=== PATIENT | female | born 1955 | race Caucasian/White ===

== ENCOUNTER 2021-03-07 05:46 | Day surgery (SDC) | payer MEDICARE, MEDICAID ==
[2021-03-07] MEDS ORDERED: XYLOCAINE 1% HCL 20 ML MDV ONE (06:39)
[2021-03-07] MEDS ORDERED: BUPIVACAINE 0.5% VIAL IJ ONE (06:39)
[2021-03-07] MEDS ORDERED: Lactated Ringers 1,000 ML IV SCH (07:00)
[2021-03-07] MEDS ORDERED: Levofloxacin 500MG/100ML D5W 500 MG/100 ML BAG IV ONE ×2 (08:11→08:14)
[2021-03-07] MEDS ORDERED: SUBLIMAZE 100 MCG/2 ML ONE ×2 (08:16→10:42)
[2021-03-07] MEDS ORDERED: Versed 2 MG/2 ML Injection ONE (08:17)
[2021-03-07] MEDS ORDERED: DIPRIVAN 200 MG/20 ML IV ONE (08:18)
[2021-03-07] MEDS ORDERED: Zemuron 100 MG/10 ML ONE (08:18)
[2021-03-07] MEDS ORDERED: Zofran 4 MG/2 ML VIAL ONE (08:18)
[2021-03-07] MEDS ORDERED: Decadron 4 MG INJ ONE (08:18)
[2021-03-07] MEDS ORDERED: Xylocaine-Mpf 2% 5 Ml Vial ONE (08:18)
[2021-03-07] MEDS ORDERED: KEFZOL 1 GM ONE (08:45)
[2021-03-07] MEDS ORDERED: BRIDION 200MG/2ML IV ONE (10:24)
[2021-03-07] MEDS ORDERED: Triple Antibiotic Ointment ONE (10:33)
--- NOTE | 2021-03-07 10:45 | XRAY ---
Indication: 2nd-5th Kathie osteotomy right foot. Intraoperative fluoroscopy provided for 41 seconds. 9 digital spot images submitted for interpretation ultimately demonstrates 2nd metatarsal head orthopedic screw and K wires traversing entire 2nd-4th toes. Correlate with intraoperative findings/report.
[2021-03-07 11:33] VITALS: O2SAT 93
[2021-03-07 11:57] VITALS: BP 157/80; PULSE 80
--- NOTE | 2021-03-08 08:14 | XRAY ---
41 seconds of fluoroscopy was used in surgery for a 2nd-5th Kathie osteotomy of right foot.
--- NOTE | 2021-03-14 12:04 | OP ---
SURGERY DATE/TIME: 03/07/2021 0834 PREOPERATIVE DIAGNOSES: Contracted digits 2, 3, 4 and 5 of the right foot, right foot pain, ingrown toenail, difficulty with ambulation. POSTOPERATIVE DIAGNOSES: Contracted digits 2, 3, 4 and 5 of the right foot, right foot pain, ingrown toenail, difficulty with ambulation. PROCEDURE: Arthrodesis of proximal interphalangeal joints for digits 2, 3, 4. Arthroplasty digit #5. Kathie osteotomy of digit #2 and removal permanent matrixectomy to the right lateral hallux toenail border. SURGEON: Shaheed Miller DPM. RETOUCHING OPERATOR: None. ANESTHESIA: General. HEMOSTASIS: Ankle tourniquet set to 250 mm of Mercury for 80 minutes. ESTIMATED BLOOD LOSS: Less than 20 cc. MATERIALS: 1.2 mm K-wires x3, 4-0 Monocryl, 3-0 Nylon and a Krista cannulated headless compression screw. INJECTABLES: 30 cc of 1:1 mixture of 1% lidocaine plain and 0.5% bupivacaine plain injected in a forefoot block-type fashion. INDICATION FOR SURGERY: Michell is a very pleasant 65 -year-old female who presented to my office with complaints of pain with ambulation in shoe gear secondary to digital contractures at the proximal interphalangeal joints as well as the metatarsophalangeal joint. Her particular deformity was a floating toe with a rigid contracture of the metatarsophalangeal joint of the second digit as well as semirigid contractures of digits 2, 3 and 4 with abductovarus rotation of digits of 4 and 5. The patient was interested in proceeding with correction surgically. She did have complaints of ingrown toenails to the bilateral lower extremity which her left foot was performed in office and because we were placing her under anesthesia she would like to take care of the removal to the right lateral border at this time. The patient understands all risks, complications and benefits of surgical intervention including but not limited to delayed wound healing, nonwound healing, delayed bone healing, nonbone healing, failure of surgical intervention and possible need for surgical intervention in the future and she understands all of the risks such as infection, hematoma and seroma were discussed with the patient prior to surgical intervention. She understands these risks as well and the percentages of which they occur. It is with this she wishes to proceed. DESCRIPTION OF PROCEDURE AND FINDINGS: The patient is brought into the OR and placed on the OR table in the supine position. At this time adequate general anesthesia was administered to the patient until she was sedated. At this time the right lower extremity was prepped and draped in typical sterile fashion, lowered onto the surgical field. At this time attention was directed to the dorsal aspect of the second digit and the second metatarsophalangeal joint. An Esmarch was utilized to exsanguinate the foot and the tourniquet was set to 250 mm of Mercury. A 15 blade was utilized to make an incision at the dorsal aspect of the second digit being careful not to damage any neurovascular structures along the way. At this time we encountered the proximal interphalangeal joint which a capsulotomy was performed. Following capsulotomy the weight bearing was simulated and this was not enough for the digital contracture to correct. A medial nonrotation stroke was performed after performing the osteotomy on the extensor digitorum longus tendon and retracting it out of the way. The metatarsal head was then exposed at this time and a sagittal saw was utilized to make osteotomy perpendicular to the weight bearing surface at the dorsal aspect of the cartilage of the second metatarsal head. At this time the head was translated posteriorly and provisional fixation was utilized to hold this metatarsal head in place. At this time a Krista cannulated headless compression screw was introduced from proximal dorsal to distal plantar obtaining great fixation which was tested for stability. At this time the remaining provisional fixation was uphold and the dorsal overhanging cartilage was removed utilizing a rongeur, this was flushed and attention then was directed to the dorsal aspect of the proximal interphalangeal joint. At this time the toe sat in line with the remaining digits and appeared to be corrected from the dorsal dislocation. However, the contracture at the proximal interphalangeal joint was still rigid therefore arthrodesis was performed of the proximal interphalangeal joint utilizing a sagittal saw to resect the head and the base of the second proximal interphalangeal joint this was checked under fluoroscopy and deemed to be adequate. A 1.2 mm K-wire was then introduced in retrograde fashion from the resected base of the middle phalanx and out the distal tip of the toe and then introduced down the central longitudinal axis in the intramedullary cavity of the proximal phalanx. Good apposition was deemed on assessment with fluoroscopy. At this time attention was directed to the dorsal aspect of digits 3 and 4 where dissection was carried out in a very similar manner as well as the procedure being careful not to damage any neurovascular structures with dissection as well as resecting the joint surface at the proximal interphalangeal joint gaining a parallel joint surface and good apposition of the two bony bases. At this time attention was directed to the dorsal aspect of the fifth digit where a derotational arthroplasty was performed insuring rotation of the adductovarus once closure was maintained and a sagittal saw was utilized to resect out the head of the proximal phalanx and no K-wire was utilized for fixation for this digit. Following this, copious amounts of sterile saline were utilized to flush the surgical sites. The surgical sites were then closed at subcutaneous level with 4-0 Monocryl and then the skin was coapted in horizontal mattress-type fashion utilizing 3-0 Nylon, this was checked under fluoroscopy and deemed to be adequate. Following this, the lateral border of the right hallux toenail was utilized using a spatula and packer operator automatic this was taken down to the base of the nail matrix. An Tajik anvil was utilized to resect the nail border and a curette was utilized to scrape the nail matrix as well as electrocautery was utilized to kill the matrix. At this time triple antibiotic and a Band-Aid was applied to the right toe. A dressing consisting of Betadine, Adaptic, 4x4, Kerlix and TING was applied to the right lower extremity and a postoperative shoe was provided for the patient for postoperative ambulation. The patient was then reversed from anesthesia. The tourniquet was let down at 80 minutes total tourniquet time. The patient was returned to the postoperative anesthesia care unit with vital signs stable and vascular status intact. Postoperative orders as indicated in the patient's discharge chart.
== END 2021-03-07 12:07 | disposition home or self-care (01) ==
LOC: SDC 05:46
PROVIDERS: ATTEND Podiatrist Foot & Ankle Surgery
DX: M20.41 Other hammer toe(s) (acquired), right foot (principal); M20.5X1 Other deformities of toe(s) (acquired), right foot; L60.0 Ingrowing nail; M79.671 Pain in right foot; Z79.899 Other long term (current) drug therapy
CPT/HCPCS: 11750; 28285; 28308; 73630; 76000; 82947; 93005; J0690; J1100; J1956; J2250; J2405; J2704; J3010; A9270-GY

== ENCOUNTER 2021-05-02 07:31 | Day surgery (SDC) | payer MEDICARE, MEDICAID ==
[~2021-05-02 07:31] MED LIST: BUPIVACAINE 0.5% VIAL IJ ONE; XYLOCAINE 1% HCL 20 ML MDV ONE
[2021-05-02] MEDS ORDERED: Lactated Ringers 1,000 ML IV ONE (07:52)
[2021-05-02] MEDS ORDERED: CEFAZOLIN 2 GM-D5W BAG** 2 GM/50 ML ML IV ONE (07:52)
[2021-05-02] MEDS ORDERED: Lactated Ringers 1,000 ML IV SCH (08:30)
[2021-05-02] MEDS ORDERED: CEFAZOLIN 2 GM-D5W BAG** 2 GM/50 ML ML IV SCH (08:30)
[2021-05-02] MEDS ORDERED: SUBLIMAZE 100 MCG/2 ML ONE (09:29)
[2021-05-02] MEDS ORDERED: Versed 2 MG/2 ML Injection ONE (09:29)
[2021-05-02] MEDS ORDERED: DIPRIVAN 200 MG/20 ML IV ONE ×2 (09:29→10:08)
--- NOTE | 2021-05-02 10:41 | XRAY ---
Indication: Right foot hardware removal. Intraoperative fluoroscopy provided for 52 seconds. 2 digital spot images submitted for interpretation demonstrates removal of 2nd metatarsal head screw. Correlate with intraoperative findings/report.
[2021-05-02 11:44] VITALS: BP 136/85; PULSE 58; O2SAT 98
--- NOTE | 2021-05-02 12:14 | XRAY ---
52 seconds fluoroscopy time in surgery for hardware removal of the right foot.
--- NOTE | 2021-05-02 15:26 | OP ---
SURGERY DATE/TIME: 05/02/2021 0932 PREOPERATIVE DIAGNOSES: 1) Ankle orthopedic hardware right foot. 2) Difficulty with ambulation. 3) Pain right foot. 4) Hyperkeratosis subfifth metatarsal head right foot. POSTOPERATIVE DIAGNOSES: 1) Ankle orthopedic hardware right foot. 2) Difficulty with ambulation. 3) Pain right foot. 4) Hyperkeratosis subfifth metatarsal head right foot. PROCEDURES: 1) Removal of hardware right foot second metatarsal. 2) Debridement of hyperkeratotic tissue subfifth metatarsal head single lesion. SURGEON: Shaheed Miller DPM. MARBLE COPER: None. ANESTHESIA: MAC. INDICATION FOR SURGERY: Michell is a very pleasant 65 -year-old female who underwent a hammer toe correction with Kathie osteotomy. Over the course of her postoperative period, she had significant correction of her hammer digits and improving the symptoms that were present prior to. She did have some irritation subsecond metatarsal head which x-rays determined there was a 1.4 mm protrusion from the plantar aspect of the metatarsal head which was causing her irritation. At this time the patient wanted to proceed with removal of said hardware. She indicates that this causes her pain with ambulation and difficulty with ambulation since the procedure and she would like to proceed with that. She also asked to proceed with a debridement of the hyperkeratotic lesion underneath the fifth metatarsal head of the ipsilateral foot while she was under anesthesia this was added to the surgical consent, signed and dated. The patient understands all risks, benefits and complications of the procedure including but not limited to delayed wound healing, nonwound healing, possible nonresolution of symptoms and continued pain with weight bearing this was discussed with the patient and she understands these risks and it is with that we decided to proceed with surgical intervention. DESCRIPTION OF PROCEDURE AND FINDINGS: At this time the patient is brought into the OR and placed on the OR table in supine position. At this time attention was directed to the right lower extremity where a tourniquet was placed on the right ankle. The tourniquet was set to 250 mm of Mercury. At this time right lower extremity was prepped and draped in typical sterile fashion and the surgical extremity lowered madalyn the field. At this time attention then was directed to the right foot where an Esmarch was utilized to exsanguinate the foot. The tourniquet was inflated to 250 mm of Mercury. At this time fluoroscopy was utilized to identify the location of the cannulated screw and K-wire was introduced from dorsal plantar. There was a stab incision that was made identifying and removing the 2.0 mm screw and passing it off the field for pathological assessment. At this time copious amounts of sterile saline were utilized to flush the surgical site. Copious amounts of sterile saline were utilized to flush the surgical site. 4-0 Monocryl was then utilized to coapt the subcutaneous skin edges and 3-0 Nylon was utilized in alternating horizontal mattress and simple interrupted type fashion to coapt the skin edges. At this time a 15 blade was utilized to debride the hyperkeratotic lesion subfifth metatarsal head. At this time a dressing consisting of Betadine, Adaptic, 4x4, Kerlix and TING was applied to the right foot. The patient was reversed from anesthesia. The tourniquet was let down at approximately 23 minutes total tourniquet time. The patient was returned to the postoperative anesthesia care unit with vital signs stable and vascular status intact. The patient handled the procedure without complications. Postoperative orders as indicated in the patient's discharge chart.
== END 2021-05-02 11:45 | disposition home or self-care (01) ==
LOC: SDC 07:31
PROVIDERS: ATTEND Podiatrist Foot & Ankle Surgery
DX: M79.671 Pain in right foot (principal); R26.2 Difficulty in walking, not elsewhere classified; L85.9 Epidermal thickening, unspecified
CPT/HCPCS: 20680; 73620; 76000; 97597; C1713; J0690; J2250; J2704; J3010

== ENCOUNTER 2021-10-06 15:57 | Emergency (ER) | payer MEDICARE ==
--- NOTE | 2021-10-06 16:06 | ERPHSYRPT ---
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 Hummel who presents with 2-day history of dorsal right foot pain. Patient had surgery on 05/02/2021 on her right foot for removal of hardware from the second metatarsal to help correct a hammertoe per patient report. Patient had been doing fairly well when approximately 2 days ago, she noticed pain in the dorsal aspect of her right foot. Patient has an appointment to see Dr. Hummel in 2 days. Method of Injury: unknown Occurred: days ago (2) Severity of Pain-Max: mild Severity of Pain-Current: mild Lower Extremities Pain: foot: right (Dorsal aspect) Modifying Factors: Improves With: movement Associated Symptoms: other (Hurts to bear weight but can do so) Allergies/Adverse Reactions: latex Allergy (Severe, Verified 10/06/21 16:08) Blisters "wraps that is going to be on for a while." Penicillins Adverse Reaction (Intermediate, Verified 10/06/21 16:07) Swelling pt states "i can and have taken keflex with no problems" clindamycin Adverse Reaction (Verified 10/06/21 16:07) Nausea and Vomiting levofloxacin [From Levaquin] Adverse Reaction (Verified 10/06/21 16:07) Nausea and Vomiting Home Medications: Albuterol Sulfate [Proair Digihaler] 90 mcg IH QID 03/03/21 [History] Albuterol/Ipratropium 3ml Neb* [DUONEB 0.5-3 MG/3 ml Neb] 1 ea UD 03/03/21 [History] Esomeprazole Magnesium [Nexium] 40 mg PO DAILY 03/03/21 [History] Fluticasone/Salmeterol [Advair 250-50 Diskus] 1 ea UD 03/03/21 [History] Folic Acid 1 mg PO DAILY 03/03/21 [History] Furosemide 20 mg [Lasix 20 mg] 20 mg PO DAILY 03/03/21 [History] Gabapentin [Neurontin ] 100 mg PO TID 03/03/21 [History] Hydroxyzine HCl 25 mg [Atarax 25 mg] 25 mg PO TID 03/03/21 [History] Lifitegrast [Xiidra] 1 each OP BID 03/03/21 [History] Montelukast Sodium 10 mg [Singulair 10 MG] 10 mg PO DAILY 03/03/21 [History] Nebivolol HCl 5 MG [Bystolic 5 MG] 5 mg PO DAILY 03/03/21 [History] Olopatadine HCl 2.5 ml OP UD 03/03/21 [History] Potassium Gluconate [Potassium] 99 mg PO DAILY 03/03/21 [History] Pravastatin Sodium 10 mg PO DAILY 03/03/21 [History] Trazodone HCl 50 mg [Desyrel 50 mg] 50 mg PO DAILY 03/03/21 [History] Duloxetine HCl 40 mg PO DAILY 04/30/21 [History] Travel Risk - International Travel Have you traveled outside of the country in past 3 weeks: No - Coronavirus Screening Are you exhibiting any of the following symptoms?: No Close contact with a COVID-19 positive Pt in past 14-21 Days: No - Review of Systems Constitutional: No Symptoms Eyes: No Symptoms Ears, Nose, & Throat: No Symptoms Respiratory: No Symptoms Cardiac: No Symptoms Abdominal/Gastrointestinal: No Symptoms Genitourinary Symptoms: No Symptoms Musculoskeletal: Other (Right foot pain dorsal aspect no specific injury) Skin: No Symptoms Neurological: No Symptoms Psychological: No Symptoms Endocrine: No Symptoms Hematologic/Lymphatic: No Symptoms Immunological/Allergic: No Symptoms All Other Systems: Reviewed and Negative - Past Medical History Pertinent Past Medical History: Yes Neurological History: No Pertinent History ENT History: No Pertinent History Cardiac History: No Pertinent History Respiratory History: No Pertinent History Endocrine Medical History: No Pertinent History Musculoskeletal History: Arthritis GI Medical History: Gallbladder Disease, Hernia History: No Pertinent History Psycho-Social History: No Pertinent History Female Reproductive Disorders: Other Other Medical History: uterine polyps- removed. 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 - Past Surgical History Past Surgical History: Yes Neuro Surgical History: No Pertinent History Cardiac: No Pertinent History Respiratory: No Pertinent History Gastrointestinal: Cholecystectomy, Hernia Repair Genitourinary: No Pertinent History Musculoskeletal: Joint Replacement Female Surgical History: Dilation & Curettage, Other Other Surgical History: polyps removed from uterus,layla. cataracts removed, right knee replaced, lump removed from right breast, - Social History Smoking Status: Former smoker Exposure to second hand smoke: No Drug Use: none - Nursing Vital Signs Nursing Vital Signs: Initial Vital Signs Temperature 97.1 F 10/06/21 16:09 Pulse Rate 70 10/06/21 16:09 Respiratory Rate 16 10/06/21 16:09 Blood Pressure 136/78 10/06/21 16:09 O2 Sat by Pulse Oximetry 98 10/06/21 16:09 Pain Scale Pain Intensity 3 - Physical Exam General Appearance: no apparent distress, alert, anxiety, obese Eyes, Ears, Nose, Throat Exam: normal ENT inspection, moist mucous membranes Neck Exam: normal inspection, non-tender, supple, full range of motion Cardiovascular/Respiratory Exam: chest non-tender, no respiratory distress Gastrointestinal/Abdominal Exam: non-tender Back Exam: normal inspection, normal range of motion, No CVA tenderness, No vertebral tenderness Hips Exam: bilateral: non-tender, normal inspection, normal range of motion, no evidence of injury Legs Exam: bilateral leg: non-tender, normal inspection, normal range of motion, no evidence of injury Knees Exam: bilateral knee: non-tender, normal inspection, normal range of motion, no evidence of injury Ankle Exam: bilateral ankle: non-tender, normal inspection, normal range of motion, no evidence of injury Foot Exam: right foot: soft tissue tenderness (Dorsal aspect right foot), left foot: non-tender, bilateral foot: normal inspection, normal range of motion, no evidence of injury Neuro/Tendon Exam: normal sensation, normal motor functions, normal tendon functions, responds to pain, no evidence tendon injury Mental Status Exam: alert, oriented x 3, cooperative Skin Exam: normal color, warm, dry SpO2 Interpretation: normal O2 Delivery: Room Air Ordered Tests: Active Orders 24 hr Category Date Time Status FOOT (MINIMUM 3 VIEWS) Stat Exams 10/06/21 16:35 Completed - Progress Progress: unchanged Progress Note: 10/06/21 16:44 xray shows no acute fx or dislocation Counseled pt/family regarding: diagnosis, need for follow-up, rad results - Departure Departure Disposition: Home Clinical Impression: Right foot pain Condition: Stable Critical Care Time: No Referrals: DEZ LACEY [Primary Care Provider] - Follow up/PCP as directed Additional Instructions: Ice pack to right foot 2-3 times a day for the next 48 hours. May use Tylenol and ibuprofen for pain control if there are no contraindications for you to take them. Keep your appoint with manager billing Dr. Hummel on , 10/09/2021
--- NOTE | 2021-10-06 16:43 | XRAY ---
Indication: Pain/pop. Comparison: July 15, 2021. 3 nonweightbearing views right foot unchanged again demonstrating mild osteopenia, 5th proximal phalanx osteotomy, and tiny plantar heel spur. No new/acute abnormalities.
[2021-10-06 16:59] VITALS: BP 133/66; PULSE 68; O2SAT 96
== END 2021-10-06 16:59 | disposition home or self-care (01) ==
LOC: ED 15:57
DX: M79.671 Pain in right foot (principal); Z79.899 Other long term (current) drug therapy
CPT/HCPCS: 73630; 99283

== ENCOUNTER 2021-11-28 06:00 | Day surgery (SDC) | payer MEDICARE ==
[2021-11-28] MEDS ORDERED: Marcaine Mpf 0.5% Vial 30 Ml IV ONE (06:01)
[2021-11-28] MEDS ORDERED: Lactated Ringers 1,000 ML IV ONE ×2 (06:33→06:48)
[2021-11-28] MEDS ORDERED: XYLOCAINE 1% HCL 20 ML MDV ONE (06:48)
[2021-11-28 07:23] VITALS: O2SAT 93
[2021-11-28] MEDS ORDERED: CLINDAMYCIN-D5W 900 MG/50 ML*** 900 MG/50 ML BAG IV ONE (07:57)
[2021-11-28] MEDS ORDERED: Lactated Ringers 1,000 ML IV SCH (08:00)
[2021-11-28] MEDS ORDERED: CLINDAMYCIN-D5W 900 MG/50 ML*** 900 MG/50 ML BAG IV SCH (08:00)
[2021-11-28] MEDS ORDERED: DIPRIVAN 200 MG/20 ML IV ONE (08:35)
[2021-11-28] MEDS ORDERED: Quelicin Fliptop 200 MG/10 ML ONE (08:35)
[2021-11-28] MEDS ORDERED: Xylocaine-Mpf 2% 5 Ml Vial ONE (08:35)
[2021-11-28] MEDS ORDERED: Zofran 4 MG/2 ML VIAL ONE (08:35)
[2021-11-28] MEDS ORDERED: Decadron 4 MG INJ ONE (08:35)
[2021-11-28] MEDS ORDERED: SUBLIMAZE 100 MCG/2 ML ONE (08:37)
[2021-11-28] MEDS ORDERED: OFIRMEV 100 ML IV ONE (08:40)
[2021-11-28] MEDS ORDERED: Pre-Attached Lta Kit TP ONE (08:40)
[2021-11-28] MEDS ORDERED: DEXMEDETOMIDINE 80 MCG/20ML-NS IV ONE (08:45)
[2021-11-28] MEDS ORDERED: Ephedrine Sulfate 50 MG/ML ONE (08:52)
--- NOTE | 2021-11-28 10:19 | XRAY ---
Indication: Right foot 3rd and 4th hammertoe correction. Intraoperative fluoroscopy provided for 31 seconds. 4 digital spot images submitted for interpretation ultimately demonstrates fusion screws traversing entire 3rd/4th toes. Correlate with intraoperative findings/report.
--- NOTE | 2021-11-28 12:36 | XRAY ---
31 seconds of fluoroscopy was used in surgery for correction of 3rd and 4th hammertoe of right foot.
--- NOTE | 2021-11-28 13:58 | OP ---
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 2) Pain right foot. 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 2) Pain right foot. PROCEDURE: Hammer toe correction with paroxysmal interphalangeal joint arthrodesis to digits 3 and 4. SURGEON: Shaheed Miller DPM. HOME HEALTH CLINICIAN: None. ANESTHESIA: General plus a preoperative local injection 20 cc of 1:1 mixture of 1% lidocaine plain and 0.5% bupivacaine plain. HEMOSTASIS: Ankle tourniquet set to 250 mm of Mercury for 21 minutes. ESTIMATED BLOOD LOSS: Less than 2 cc. MATERIALS: Two - 2.5 inch x 26 mm MAX VPC Krista variable compression screws, 3-0 Nylon. INJECTABLES: 20 cc of 1:1 mixture of 1% lidocaine plain and 0.5% bupivacaine plain injected in a digital block-type fashion. INDICATION FOR SURGERY: Michell is a very well-known patient of [facility] who is very pleasant. She has had extensive history of foot pain as a result of contracted digits. Earlier last year the patient did have hammer toes corrections to which the second and fifth toe did well. However, there was a recontracture of digits 3 and 4. This was described to her prior to surgical intervention as a potential complication. The patient shortly thereafter have her K-wires taken out have a recurrence of the issue and put it off until today. The patient had some significant pain secondary to the contractures consisting of pain at the distal tips of the toes with the contracture with ambulation. The patient indicates that most of the pain was when she was weight bearing without her shoes on. As a diabetic this is not advisable for her. The patient understands all risks, complications and benefits of surgical intervention including but not limited to possibility of recontracture although lower possibility at this time, possibility of infection, hematoma, seroma, need for surgical intervention at a later date and the possibility of irritating hardware. It is with that the patient would like to proceed with surgical intervention. DESCRIPTION OF PROCEDURE AND FINDINGS: The patient is brought into the OR and placed on the OR table in the supine position. At this time adequate general anesthesia was then administered. At this time attention was directed to the right foot were a well-padded ankle tourniquet was applied and the tourniquet was set to 250 mm of Mercury. At this time the right foot was prepped and draped in the typical sterile fashion and lowered onto to the surgical field. At this time an Esmarch was utilized to exsanguinate the foot and the tourniquet was inflated. Attention was directed to the dorsal aspect of the third and fourth digit where horizontal incision was made along the joint line. Toe was in a varus position. At the proximal interphalangeal joint and recontracted. At this time dissection was carried down to the joint line which fused in this position. Sagittal saw was utilized to resect bone making cuts to simulate leveling out for the varus contracture and the plantar flexor contracture. At this time copious amounts of sterile saline were utilized to flush the site. K-wires were retrograded at the distal tip of the toe at the central aspect of the middle and distal interphalanges. At this time the K-wire was retrograded down to longitudinal cortex of the proximal phalanx making sure to be intramedullary. At this time a 26 mm x 2.5 MAX VPC screw was introduced from the distal tip of the toe and into the medullary cavity of the proximal phalanx getting adequate compression as this was applied. Kelikian push-up test was performed and the position of the toes were deemed to be parallel with the second digit and in a linear orientation this was checked on multiple views under fluoroscopy. Following this copious amounts of sterile saline were once again utilized to flush the surgical site. Attention then was directed to the dorsal aspect of the digits where 3-0 Nylon was utilized to coapt the incision as well as the distal tips of the toes in a simple interrupted-type fashion. The patient was then reversed from anesthesia and returned to the postoperative anesthesia care unit with vital signs stable and vascular status intact. Postoperative dressing consisting of Betadine, Adaptic, 4x4, Kerlix and TING was applied. The patient was provided a postoperative surgical sandal. Postoperative orders as indicated in the patient's discharge chart.
[2021-11-28 19:23] VITALS: BP 112/65; PULSE 77
== END 2021-11-28 11:10 | disposition home or self-care (01) ==
LOC: SDC 06:00
PROVIDERS: ATTEND Podiatrist Foot & Ankle Surgery
DX: M20.41 Other hammer toe(s) (acquired), right foot (principal); M79.671 Pain in right foot; E11.9 Type 2 diabetes mellitus without complications
CPT/HCPCS: 73620; 76000; 82947; 93005; J0330; J1100; J2405; J2704; J3010

== ENCOUNTER 2021-12-16 11:31 | Emergency (ER) | payer MEDICARE ==
[2021-12-16] MEDS ORDERED: Sodium Chloride 0.9% 1000 ML 1,000 ML IV STA (11:52)
[2021-12-16] MEDS ORDERED: Sodium Chloride 0.9% 1000 ML 1,000 ML ONE (11:56)
--- NOTE | 2021-12-16 11:58 | ERPHSYRPT ---
- History of Present Illness Time Seen by Provider: 12/16/21 11:50 Historian: patient Exam Limitations: no limitations Patient Subjective Stated Complaint: Pt states "I have pain in my lower right belly. It started yesterday." Triage Nursing Assessment: Pt presented alert and oriented X3, skin pwd. pt ambulates with an upright steadgy gait, able to speak in clear fll sentences pt resting comfortably on the bed, every now and then she will hold her right lower abodmen Physician History: Patient is a 66-year-old female who presents with a complaint of abdominal pain which started yesterday. The pain is located primarily in the right lower quadrant she rates the pain 8 of 10 it is worse with movement palpation or breathing. She has not had a fever but she is not also had any appetite. No nausea or vomiting. No diarrhea. She also still has her appendix but her gallbladder is gone. Timing/Duration: yesterday Activities at Onset: none Quality: cramping, stabbing Abdominal Pain Onset Location: RLQ Severity of Pain-Max: moderate Severity of Pain-Current: moderate Modifying Factors: Improves With: movement, palpation Allergies/Adverse Reactions: latex Allergy (Severe, Verified 11/28/21 07:34) Blisters "wraps that is going to be on for a while." Penicillins Adverse Reaction (Intermediate, Verified 11/28/21 07:34) Swelling pt states "i can and have taken keflex with no problems" cefdinir Adverse Reaction (Verified 11/28/21 07:34) clindamycin Adverse Reaction (Verified 11/28/21 07:34) Nausea and Vomiting gentamicin Adverse Reaction (Verified 11/28/21 07:34) levofloxacin [From Levaquin] Adverse Reaction (Verified 11/28/21 07:34) Nausea and Vomiting Home Medications: Albuterol Sulfate [Proair Digihaler] 90 mcg IH QID 03/03/21 [History] Albuterol/Ipratropium 3ml Neb* [DUONEB 0.5-3 MG/3 ml Neb] 1 ea UD 03/03/21 [History] Esomeprazole Magnesium [Nexium] 40 mg PO DAILY 03/03/21 [History] Fluticasone/Salmeterol [Advair 250-50 Diskus] 1 ea UD 03/03/21 [History] Folic Acid 1 mg PO DAILY 03/03/21 [History] Furosemide 20 mg [Lasix 20 mg] 20 mg PO DAILY 03/03/21 [History] Gabapentin [Neurontin ] 100 mg PO TID 03/03/21 [History] Hydroxyzine HCl 25 mg [Atarax 25 mg] 25 mg PO TID 03/03/21 [History] Lifitegrast [Xiidra] 1 each OP BID 03/03/21 [History] Montelukast Sodium 10 mg [Singulair 10 MG] 10 mg PO DAILY 03/03/21 [History] Nebivolol HCl 5 MG [Bystolic 5 MG] 5 mg PO DAILY 03/03/21 [History] Olopatadine HCl 2.5 ml OP UD 03/03/21 [History] Potassium Gluconate [Potassium] 99 mg PO DAILY 03/03/21 [History] Pravastatin Sodium 10 mg PO DAILY 03/03/21 [History] Trazodone HCl 50 mg [Desyrel 50 mg] 50 mg PO DAILY 03/03/21 [History] Duloxetine HCl 40 mg PO DAILY 04/30/21 [History] Dulaglutide [Trulicity] 1 applic SQ WEEKLY 11/28/21 [History] Empagliflozin [Jardiance] 1 tab PO DAILY 11/28/21 [History] Hx Tetanus, Diphtheria Vaccination/Date Given: Yes Hx Influenza Vaccination/Date Given: Yes Hx Pneumococcal Vaccination/Date Given: Yes Immunizations Up to Date: Yes Travel Risk - International Travel Have you traveled outside of the country in past 3 weeks: No - Coronavirus Screening Are you exhibiting any of the following symptoms?: No Close contact with a COVID-19 positive Pt in past 14-21 Days: No - Vaccine Status Have you recieved a Covid-19 vaccination: Yes 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 - Vaccination Dates Date of 2cond Vaccination (if applicable): 08/30/20 - Review of Systems Constitutional: No Fever, No Chills Eyes: No Symptoms Ears, Nose, & Throat: No Symptoms Respiratory: No Cough, No Dyspnea Cardiac: No Chest Pain, No Edema, No Syncope Abdominal/Gastrointestinal: Abdominal Pain, No Nausea, No Vomiting, No Diarrhea Genitourinary Symptoms: No Dysuria Musculoskeletal: No Back Pain, No Neck Pain Skin: No Rash Neurological: No Dizziness, No Focal Weakness, No Sensory Changes Psychological: No Symptoms Endocrine: No Symptoms All Other Systems: Reviewed and Negative - Past Medical History Pertinent Past Medical History: Yes Neurological History: No Pertinent History ENT History: No Pertinent History, Cataracts Cardiac History: Arrhythmia, Hypertension, Other Respiratory History: COPD Endocrine Medical History: Diabetes Type II Musculoskeletal History: Rheumatoid Arthritis GI Medical History: GERD History: Other Psycho-Social History: No Pertinent History Female Reproductive Disorders: No Pertinent History, Other Other Medical History: RIGHT KNEE IMPLANT, KIDNEY PROBLEMS, BRUSIE EASY. Former smoker. Rheumatic fever as a child and has " leaky valves" - Past Surgical History Past Surgical History: Yes Neuro Surgical History: No Pertinent History Cardiac: No Pertinent History Respiratory: No Pertinent History Gastrointestinal: Cholecystectomy, Hernia Repair Genitourinary: No Pertinent History Musculoskeletal: Joint Replacement Female Surgical History: Dilation & Curettage, Other Other Surgical History: R KNEE REPLACED, INGROWN TONAILS. HAMMER TOE FIXED - Social History Smoking Status: Former smoker Exposure to second hand smoke: Yes Drug Use: none Patient Lives Alone: Yes - Nursing Vital Signs Nursing Vital Signs: Initial Vital Signs Temperature 97.2 F 12/16/21 11:43 Pulse Rate 66 12/16/21 11:43 Respiratory Rate 20 12/16/21 11:43 Blood Pressure 124/68 12/16/21 11:43 O2 Sat by Pulse Oximetry 98 12/16/21 11:43 Pain Scale Pain Intensity 4 - Physical Exam General Appearance: mild distress, alert Eye Exam: PERRL/EOMI, eyes nml inspection Ears, Nose, Throat Exam: normal ENT inspection, pharynx normal, moist mucous membranes Neck Exam: normal inspection, non-tender, supple, full range of motion Respiratory Exam: normal breath sounds, lungs clear, No respiratory distress Cardiovascular Exam: regular rate/rhythm, normal heart sounds Gastrointestinal/Abdomen Exam: normal bowel sounds, tenderness, guarding, rebound, No mass Pelvic Exam: not done Rectal Exam: deferred Back Exam: normal inspection, normal range of motion, No CVA tenderness, No vertebral tenderness Extremity Exam: normal inspection, normal range of motion, pelvis stable Neurologic Exam: alert, oriented x 3, cooperative, normal mood/affect, nml cerebellar function, sensation nml, No motor deficits Skin Exam: normal color, warm, dry SpO2 Interpretation: normal SpO2: 98 O2 Delivery: Room Air - Course Nursing assessment & vital signs reviewed: Yes - CT Exams Abdomen/Pelvis CT Interpretation: Other (Some constipation per the radiologist) Ordered Tests: Active Orders 24 hr Category Date Time Status IV Insertion STAT Care 12/16/21 11:52 Active ABDOMEN AND PELVIS W CONTRAST [CT] Stat Exams 12/16/21 11:52 Completed AMYLASE Stat Lab 12/16/21 11:50 Completed CBC W DIFF Stat Lab 12/16/21 11:50 Completed CMP Stat Lab 12/16/21 11:50 Completed LIPASE Stat Lab 12/16/21 11:50 Completed Lactic Acid Stat Lab 12/16/21 12:03 Completed UA W/RFX CULTURE Stat Lab 12/16/21 11:55 Completed Medication Summary Discontinued Medications Generic Name Dose Route Start Last Admin Trade Name Freq PRN Reason Stop Dose Admin Sodium Chloride 1,000 mls @ 999 mls/hr 12/16/21 11:52 12/16/21 12:59 Sodium Chloride 0.9% 1000 Ml IV 12/16/21 12:52 Infused .Q1H1M STA Infusion Sodium Chloride Confirm 12/16/21 11:56 Sodium Chloride 0.9% 1000 Ml Administered 12/16/21 11:57 Dose 1,000 mls @ ud .ROUTE .[facility] Lab/Rad Data: Laboratory Result Diagrams 12/16/21 11:50 12/16/21 11:50 Laboratory Results 12/16/21 12/16/21 12/16/21 Range/Units 12:03 11:55 11:50 WBC (4.0-10.5) x10^3/uL RBC (4.1-5.4) x10^6/uL Hgb (12.0-16.0) g/dL Hct (35-47) % MCV (78-100) fL MCH (26-32) pg MCHC (32-36) g/dL RDW (11.5-14.0) % Plt Count (150-450) x10^3/uL MPV (7.5-11.0) fL Gran % (36.0-66.0) % Immature Gran % (Auto) (0.00-0.4) % Nucleat RBC Rel Count (0.00-0.1) % Eos # (Auto) (0-0.5) x10^3/uL Immature Gran # (Auto) (0.00-0.03) x10^3u/L Absolute Lymphs (auto) (1.0-4.6) x10^3/uL Absolute Monos (auto) (0.0-1.3) x10^3/uL Absolute Nucleated RBC (0.00-0.01) x10^3u/L Lymphocytes % (24.0-44.0) % Monocytes % (0.0-12.0) % Eosinophils % (0.00-5.0) % Basophils % (0.0-0.4) % Absolute Granulocytes (1.4-6.9) x10^3/uL Basophils # (0-0.4) x10^3/uL Sodium 137 (137-145) mmol/L Potassium 3.8 (3.5-5.1) mmol/L Chloride 102 (98-107) mmol/L Carbon Dioxide 31 H (22-30) mmol/L Anion Gap 8.1 (5-15) MEQ/L BUN 10 (7-17) mg/dL Creatinine 1.07 H (0.52-1.04) mg/dL Estimated GFR 54.4 ML/MIN Glucose 83 (74-106) mg/dL Lactic Acid 0.8 (0.4-2.0) Calcium 9.4 (8.4-10.2) mg/dL Total Bilirubin 0.60 (0.2-1.3) mg/dL AST 32 (14-36) U/L ALT 29 (0-35) U/L Alkaline Phosphatase 50 (38-126) U/L Serum Total Protein 7.2 (6.3-8.2) g/dL Albumin 3.9 (3.5-5.0) g/dL Amylase 63 (30-110) U/L Lipase 61 (23-300) U/L Urinalys Dipstick Clnc MAIN LAB Urine Color YELLOW (YELLOW) Urine Appearance CLEAR (CLEAR) Urine pH 6.5 (5-6) Ur Specific [place] 1.010 (1.005-1.025) POC Urine Protein Conf NEGATIVE (Negative) Urine Ketones NEGATIVE (NEGATIVE) Urine Nitrite NEGATIVE (NEGATIVE) Urine Bilirubin NEGATIVE (NEGATIVE) Urine Urobilinogen 0.2 (0-1) mg/dL Urine Leukocytes NEGATIVE (NEGATIVE) Urine WBC (Auto) 11-15 (0-5) /HPF Urine RBC (Auto) 0-2 (0-2) /HPF U Epithel Cells (Auto) RARE (FEW) /HPF Urine Bacteria (Auto) RARE (NEGATIVE) /HPF Urine RBC NEGATIVE (0-5) Jose Daniel/ul Ur Culture Indicated? NO Urine Glucose 500 (NEGATIVE) mg/dL 12/16/21 Range/Units 11:50 WBC 5.3 (4.0-10.5) x10^3/uL RBC 4.37 (4.1-5.4) x10^6/uL Hgb 12.8 (12.0-16.0) g/dL Hct 41.1 (35-47) % MCV 94.1 (78-100) fL MCH 29.3 (26-32) pg MCHC 31.1 L (32-36) g/dL RDW 14.3 H (11.5-14.0) % Plt Count 156 (150-450) x10^3/uL MPV 10.5 (7.5-11.0) fL Gran % 65.2 (36.0-66.0) % Immature Gran % (Auto) 0.2 (0.00-0.4) % Nucleat RBC Rel Count 0.0 (0.00-0.1) % Eos # (Auto) 0.11 (0-0.5) x10^3/uL Immature Gran # (Auto) 0.01 (0.00-0.03) x10^3u/L Absolute Lymphs (auto) 1.20 (1.0-4.6) x10^3/uL Absolute Monos (auto) 0.47 (0.0-1.3) x10^3/uL Absolute Nucleated RBC 0.00 (0.00-0.01) x10^3u/L Lymphocytes % 22.8 L (24.0-44.0) % Monocytes % 8.9 (0.0-12.0) % Eosinophils % 2.1 (0.00-5.0) % Basophils % 0.8 (0.0-0.4) % Absolute Granulocytes 3.43 (1.4-6.9) x10^3/uL Basophils # 0.04 (0-0.4) x10^3/uL Sodium (137-145) mmol/L Potassium (3.5-5.1) mmol/L Chloride (98-107) mmol/L Carbon Dioxide (22-30) mmol/L Anion Gap (5-15) MEQ/L BUN (7-17) mg/dL Creatinine (0.52-1.04) mg/dL Estimated GFR ML/MIN Glucose (74-106) mg/dL Lactic Acid (0.4-2.0) Calcium (8.4-10.2) mg/dL Total Bilirubin (0.2-1.3) mg/dL AST (14-36) U/L ALT (0-35) U/L Alkaline Phosphatase (38-126) U/L Serum Total Protein (6.3-8.2) g/dL Albumin (3.5-5.0) g/dL Amylase (30-110) U/L Lipase (23-300) U/L Urinalys Dipstick Clnc Urine Color (YELLOW) Urine Appearance (CLEAR) Urine pH (5-6) Ur Specific [place] (1.005-1.025) POC Urine Protein Conf (Negative) Urine Ketones (NEGATIVE) Urine Nitrite (NEGATIVE) Urine Bilirubin (NEGATIVE) Urine Urobilinogen (0-1) mg/dL Urine Leukocytes (NEGATIVE) Urine WBC (Auto) (0-5) /HPF Urine RBC (Auto) (0-2) /HPF U Epithel Cells (Auto) (FEW) /HPF Urine Bacteria (Auto) (NEGATIVE) /HPF Urine RBC (0-5) Jose Daniel/ul Ur Culture Indicated? Urine Glucose (NEGATIVE) mg/dL - Progress Progress: improved - Departure Departure Disposition: Home Clinical Impression: Constipation, UTI (urinary tract infection) Condition: Stable Critical Care Time: No Referrals: DEZ LACEY [Primary Care Provider] - Follow up/PCP as directed Instructions: Constipation, Adult (DC), Urinary Tract Infection, Adult (DC) Prescriptions: Cephalexin Mh 500 mg [Keflex 500 mg] 500 mg PO QID 10 Days #40 cap
[2021-12-16 12:08] LABS: Absolute Neutrophil Ct (ANC) 3.43 x10^3/uL (1.4-6.9); Basophil (Absolute #) 0.04 x10^3/uL (0-0.4); Eosinophil % 2.1 % (0.00-5.0); Eosinophil (Absolute #) 0.11 x10^3/uL (0-0.5); Hematocrit 41.1 % (35-47); Hemoglobin 12.8 g/dL (12.0-16.0); Lymphocytes % 22.8 % (24.0-44.0); Mean Cell Volume 94.1 fL (78-100); Mean Corpuscular Hemoglobin 29.3 pg (26-32); Mean Corpuscular Hgb Concent. 31.1 g/dL (32-36); Mean Platelet Volume 10.5 fL (7.5-11.0); Monocyte (Absolute #) 0.47 x10^3/uL (0.0-1.3); Monocytes % 8.9 % (0.0-12.0); Neutrophil % 65.2 % (36.0-66.0); Platelet Count 156 x10^3/uL (150-450); Red Blood Count 4.37 x10^6/uL (4.1-5.4); Red Cell Distribution Width 14.3 % (11.5-14.0); White Blood Count 5.3 x10^3/uL (4.0-10.5)
[2021-12-16 12:10] LABS: Bacteria RARE /HPF (NEGATIVE); Epithelial Cells RARE /HPF (FEW); RBC 0-2 /HPF (0-2)
[2021-12-16 12:12] LABS: Appearance CLEAR (CLEAR); Bilirubin NEGATIVE (NEGATIVE); Glucose 500 mg/dL (NEGATIVE); Ketones NEGATIVE (NEGATIVE); Nitrite NEGATIVE (NEGATIVE); Ph 6.5 (5-6); Protein,Urine Dip NEGATIVE (Negative); RBC NEGATIVE Ery/ul (0-5); Urobilinogen 0.2 mg/dL (0-1)
[2021-12-16 12:13] LABS: Urine Cultured Indicated? NO
[2021-12-16 12:14] LABS: Dipstick done @ ? MAIN LAB
[2021-12-16 12:26] LABS: ALBUMIN 3.9 g/dL (3.5-5.0); ANION GAP 8.1 MEQ/L (5-15); BILIRUBIN,TOTAL 0.6 mg/dL (0.2-1.3); Calcium 9.4 mg/dL (8.4-10.2); Creatinine 1 1.07 mg/dL (0.52-1.04); EST GLOMERULAR FILTRATION RATE 54.4 ML/MIN; Potassium 3.8 mmol/L (3.5-5.1); Total Protein 7.2 g/dL (6.3-8.2)
[2021-12-16 13:03] VITALS: BP 122/60; PULSE 72
--- NOTE | 2021-12-16 13:22 | XRAY ---
Indication: Right lower quadrant pain. Multiple contiguous images obtained through the abdomen and pelvis using 80 cc Isovue 370 contrast. Comparison: None Lung bases demonstrates moderate bibasilar subsegmental atelectasis/scarring. No infiltrate or effusion. Heart borderline enlarged. Small hiatal hernia. Noncontrasted stomach and bowel loops appear nonobstructed with normal appendix. Mild diffuse scattered colonic fecal debris greatest in the ascending and transverse colon. Scattered sigmoid diverticulosis without diverticulitis. Previous cholecystectomy. No free fluid/air. Right lobe liver demonstrates 1.4 cm cyst. Both kidneys enhance and excrete with 4 mm left lower pole renal cyst. A few tiny hepatic/splenic calcified granulomas. Remaining liver, pancreas, spleen, adrenal glands, kidneys, ureters, bladder, and uterus are unremarkable. Mild scattered aortoiliac calcifications are no AAA or pathologic retroperitoneal lymphadenopathy. Osseous structures intact with mild degenerative changes throughout the thoracolumbar spine and left hip. Intact ventral hernia mesh graft. Impression: 1. Small hiatal hernia, mild diffuse fecal stasis, sigmoid diverticulosis, hepatic/left renal cysts, chronic bony findings, and old granulomatous disease. 2. Remaining CT abdomen/pelvis with contrast exam is negative.
[2021-12-16 13:32] VITALS: O2SAT 98
== END 2021-12-16 13:41 | disposition home or self-care (01) ==
LOC: ED 11:31
DX: N39.0 Urinary tract infection, site not specified (principal); K59.00 Constipation, unspecified; R10.31 Right lower quadrant pain; I10 Essential (primary) hypertension; J44.9 Chronic obstructive pulmonary disease, unspecified; E11.9 Type 2 diabetes mellitus without complications; Z79.84 Long term (current) use of oral hypoglycemic drugs; Z79.899 Other long term (current) drug therapy
CPT/HCPCS: 36000; 36415; 74177; 80053; 81015; 82150; 83605; 83690; 85025; 96360; 99284

== ENCOUNTER 2023-01-29 06:36 | Day surgery (SDC) | payer MEDICARE ==
[2023-01-29] MEDS ORDERED: Xylocaine 1% Vial 30 ML PF IJ ONE (06:37)
[2023-01-29] MEDS ORDERED: Lactated Ringers 1,000 ML IV SCH (07:00)
[2023-01-29] MEDS ORDERED: CLINDAMYCIN-D5W 900 MG/50 ML*** 900 MG/50 ML BAG IV SCH (07:00)
[2023-01-29] MEDS ORDERED: CEFAZOLIN 2 GM-D5W BAG** 2 GM/50 ML ML IV ONE (07:29)
[2023-01-29] MEDS ORDERED: Lactated Ringers 1,000 ML IV ONE ×2 (07:29→11:03)
[2023-01-29] MEDS ORDERED: CEFAZOLIN 2 GM-D5W BAG** 2 GM/50 ML ML IV SCH (07:30)
[2023-01-29 07:59] VITALS: RESP 16
[2023-01-29 08:00] LABS: Hematocrit 37.7 % (35-47); Hemoglobin 11.5 g/dL (12.0-16.0); Mean Cell Volume 95.2 fL (78-100); Mean Corpuscular Hgb Concent. 30.5 g/dL (32-36); Mean Platelet Volume 10.1 fL (7.5-11.0); Platelet Count 167 x10^3/uL (150-450); Red Blood Count 3.96 x10^6/uL (4.1-5.4); Red Cell Distribution Width 14.5 % (11.5-14.0); White Blood Count 6.1 x10^3/uL (4.0-10.5)
[2023-01-29 08:17] LABS: ALBUMIN 3.6 g/dL (3.5-5.0); ANION GAP 10.9 MEQ/L (5-15); BILIRUBIN,TOTAL 0.4 mg/dL (0.2-1.3); Calcium 8.5 mg/dL (8.4-10.2); Creatinine 1 1.02 mg/dL (0.52-1.04); EST GLOMERULAR FILTRATION RATE 57.3 ML/MIN; Potassium 4.1 mmol/L (3.5-5.1); Total Protein 6.2 g/dL (6.3-8.2)
[2023-01-29 08:19] LABS: INR 0.92 (0.8-3.0); PROTIME 10.1 SECONDS (9.4-12.5); PTT 25.5 SECONDS (25.1-36.5)
[2023-01-29] MEDS ORDERED: Marcaine Mpf 0.5% Vial 30 Ml ONE (10:15)
[2023-01-29] MEDS ORDERED: Reglan 10 MG/2 ML ONE (10:20)
[2023-01-29] MEDS ORDERED: Pepcid 20 MG VIAL IV ONE ×2 (10:20→10:27)
[2023-01-29] MEDS ORDERED: Reglan 10 MG/2 ML IV ONE (10:27)
[2023-01-29] MEDS ORDERED: DIPRIVAN 200 MG/20 ML IV ONE ×2 (10:28→11:12)
[2023-01-29] MEDS ORDERED: Zofran 4 MG/2 ML VIAL ONE (10:28)
[2023-01-29] MEDS ORDERED: Xylocaine-Mpf 2% 5 Ml Vial ONE (10:28)
[2023-01-29] MEDS ORDERED: Decadron 4 MG INJ ONE (10:28)
[2023-01-29] MEDS ORDERED: Versed 2 MG/2 ML Injection ONE (10:29)
[2023-01-29] MEDS ORDERED: SUBLIMAZE 100 MCG/2 ML ONE (10:29)
[2023-01-29] MEDS ORDERED: TORAdol 30 mg Injection ONE (10:39)
--- NOTE | 2023-01-29 12:22 | XRAY ---
Indication: Right hammertoe correction. Intraoperative fluoroscopy provided for 1 minute 40 seconds. 12 digital spot images submitted for interpretation ultimately demonstrates osteotomy head 5th metatarsal with a single traversing screw. Also arthrodesis 5th toe with single screw. Previous arthrodesis 3rd/4th toes with a single screw each. Correlate with intraoperative findings/report.
[2023-01-29 12:40] VITALS: O2SAT 95
[2023-01-29 12:51] VITALS: BP 132/74; PULSE 59; TEMP 96.1
--- NOTE | 2023-02-01 09:02 | XRAY ---
One minute and 40 seconds of fluoroscopy was used in surgery for a Right hammertoe correction.
--- NOTE | 2023-02-01 14:03 | OP ---
SURGERY DATE/TIME: 01/29/2023 1029 PREOPERATIVE DIAGNOSES: 1) Pain right foot. 2) Plantar fat pad atrophy. 3) Lateral column overload. 4) Fifth metatarsal deformity. 5) Hammer toe. 6) Gastrocnemius equinus. POSTOPERATIVE DIAGNOSES: 1) Pain right foot. 2) Plantar fat pad atrophy. 3) Lateral column overload. 4) Fifth metatarsal deformity. 5) Hammer toe. 6) Gastrocnemius equinus. PROCEDURES: 1) Gastrocnemius resection. 2) Metatarsal elevating osteotomy. 3) Hammer toe correction fifth digit. SURGEON: Shaheed Miller DPM. POWER PLANT ASSISTANT: None. ANESTHESIA: Monitored anesthesia care plus a regional block plus a local block. HEMOSTASIS: Ankle tourniquet set to 250 mm of Mercury for approximately 35 total tourniquet minutes. MATERIALS: 2.5 x 18 VPC x2. 4-0 Monocryl, 3-0 Nylon. INJECTABLES: 20 cc of a 1:1 mixture of 1% lidocaine plain and 0.5% bupivacaine plain injected in a mini-Sibley block-type fashion. INDICATION FOR SURGERY: Michell is a very pleasant 67-year-old female very well-known to my service for multiple interventions for hammer toes, ingrown toenail and routine diabetic foot care. At this time the patient has been experiencing some plantar pressure underneath the fifth metatarsal that has caused her significant amount of pain with ambulation without shoe gear. Options were discussed with the patient in regards conservative management however these have failed and the patient would like to proceed with surgical intervention. On clinical examination the patient does have a positive over score test for gastrocnemius equinus where there is dorsiflexory limitation with the knee extended. However if the knee is flexed there is an increase in range of motion at the level of the ankle. She also does have a good amount of plantar fat pad atrophy that only seems to bother to the right lower extremity underneath the fifth metatarsal where she developed significantly sized callouses. All options were discussed with the patient and the patient wishes to proceed with surgical intervention. At this time no guarantees were provided as to the outcome of surgery. Plenty of time was allowed for the patient to ask questions which were answered to her apparent satisfaction. All risks, complications and benefits of the surgical intervention were discussed at length with the patient including but not limited to infection, hematoma, seroma, possibility of delayed wound healing, nonwound healing, possibility of need for surgical intervention at a later date and possible failure of intervention. It is with that we decided to proceed. DESCRIPTION OF PROCEDURE AND FINDINGS: The patient was brought into the OR and placed on the OR table in the supine position. At this time, monitored anesthesia care was administered until the patient was sedated. The patient was then given a popliteal and saphenous block. Following this the right lower extremity was prepped and draped in the typical sterile fashion and lowered onto the surgical field. At this time attention was directed to the posterior medial aspect of the calf where a small linear incision was made through the level of the skin. Blunt dissection was carried down to the crural fascia which was then incised. The fascia was then retracted utilizing a pediatric speculum and blunt dissection was carried down to the lateral aspect of the right lower extremity where the gastrocnemius aponeurosis was identified. At this time the pediatric speculum was opened and a 10 blade was utilized under direct visualization making sure not to damage the sural nerve incising the aponeurosis until the muscle belly was identified. The pediatric speculum was removed and any constricture bands were released with a pair of tenotomy scissors. Following this, copious amounts of sterile saline were utilized to flush the surgical site. 4-0 Monocryl was utilized to coapt the subcutaneous skin edges in a simple buried-type fashion and then 3-0 Nylon were utilized to coapt the skin edges in a horizontal mattress-type fashion. Following this attention was directed to the forefoot where Esmarch was utilized to exsanguinate the leg and the tourniquet was inflated to 300 mm of Mercury. At this time, the linear incision was made at the dorsolateral aspect of the fifth metatarsal. Careful dissection was carried down making sure not to damage any neurovascular structures along the way until the fifth metatarsal and fifth metatarsal head were identified as well the proximal phalangeal joint. The proximal phalangeal joint was resected correcting for the slight hammer toe abductor varus rotation. From that standpoint the decision was made as this was a revision to proceed with hammer toe correction this consisted of an insertion of a 2.5 x 18 VPC screw from the distal tip after a K-wire was retrograded from the proximal aspect of the joint distally and then retrograded down the proximal aspect under direct visualization of the K-wire. From that standpoint an osteotomy was made of the fifth metatarsal head elevating the fifth metatarsal so that the plantar pressure would be reduced. A single 2.5 x 18 VPC screw was introduced from a proximal lateral to distal medial orientation capturing cortical bone of both the proximal metatarsal fragment as well as the distal. From that standpoint, attention was directed where there was still some elevation of the fifth digit and an extensor tendon lengthening was carried out. After the extensor tendon lengthening was performed utilizing U osteotomy, a capsulotomy was performed prior to repairing the tendon in a better position so that when the foot was loaded it sad in line with the third and fourth digits. Following this, copious amounts of sterile saline were utilized to flush the surgical site. 3-0 Nylon was utilized to coapt the surgical incision in a horizontal mattress-type fashion. Betadine, Adaptic, 4x4, Kerlix and TING were applied to the right lower extremity with the foot orthogonal relative to longitudinal axis of the leg. CAM boot was provided for postoperative care and preventing scarring if the gastrocnemius resection in the postoperative period. The patient was then reversed from anesthesia and returned to the postoperative anesthesia care unit with vital signs stable and vascular status intact. The patient handled the anesthesia as well as the procedure without significant complications. Postoperative orders as indicated in the patient's discharge chart.
== END 2023-01-29 13:05 | disposition home or self-care (01) ==
LOC: SDC 06:36
PROVIDERS: ATTEND Podiatrist Foot & Ankle Surgery
DX: M20.41 Other hammer toe(s) (acquired), right foot (principal); M21.961 Unspecified acquired deformity of right lower leg; M79.4 Hypertrophy of (infrapatellar) fat pad; M79.671 Pain in right foot; E11.9 Type 2 diabetes mellitus without complications
CPT/HCPCS: 36415; 73630; 76000; 80053; 82947; 85027; 85610; 85730; J0690; J1100; J1885; J2001; J2250; J2405; J2704; J3010

== ENCOUNTER 2023-03-05 07:02 | Day surgery (SDC) | payer MEDICARE ==
[~2023-03-05 07:02] MED LIST changes: -BUPIVACAINE 0.5% VIAL IJ ONE; +Marcaine Mpf 0.5% Vial 30 Ml ONE; -XYLOCAINE 1% HCL 20 ML MDV ONE; +Xylocaine 1% Vial 30 ML PF IJ ONE
[2023-03-05] MEDS ORDERED: Lactated Ringers 1,000 ML IV SCH (07:30)
[2023-03-05] MEDS ORDERED: CEFAZOLIN 2 GM-D5W BAG** 2 GM/50 ML ML IV SCH (07:30)
[2023-03-05] MEDS ORDERED: Lactated Ringers 1,000 ML IV ONE (07:34)
[2023-03-05] MEDS ORDERED: CEFAZOLIN 2 GM-D5W BAG** 2 GM/50 ML ML IV ONE (07:37)
[2023-03-05 07:59] LABS: ALBUMIN 4.2 g/dL (3.5-5.0); ALKALINE PHOSPHATASE 50 U/L (38-126); ANION GAP 9.5 MEQ/L (5-15); BLOOD UREA NITROGEN 10 mg/dL (7-17); CHLORIDE 102 mmol/L (98-107); Calcium 8.7 mg/dL (8.4-10.2); Carbon Dioxide 30 mmol/L (22-30); Creatinine 1 0.97 mg/dL (0.52-1.04); EST GLOMERULAR FILTRATION RATE > 60.0 ML/MIN; Glucose 98 mg/dL (74-106); Potassium 4.2 mmol/L (3.5-5.1); SGOT/AST 26 U/L (14-36); SGPT/ALT 18 U/L (0-35); SODIUM 137 mmol/L (137-145); Total Protein 7.2 g/dL (6.3-8.2)
[2023-03-05 08:17] LABS: Hematocrit 37.4 % (35-47); Hemoglobin 11.9 g/dL (12.0-16.0); Mean Cell Volume 94.2 fL (78-100); Mean Corpuscular Hgb Concent. 31.8 g/dL (32-36); Platelet Count 153 x10^3/uL (150-450); Red Blood Count 3.97 x10^6/uL (4.1-5.4); Red Cell Distribution Width 13.6 % (11.5-14.0); White Blood Count 4.9 x10^3/uL (4.0-10.5)
[2023-03-05] MEDS ORDERED: DIPRIVAN 200 MG/20 ML IV ONE ×2 (09:19→10:03)
[2023-03-05] MEDS ORDERED: Xylocaine-Mpf 2% 5 Ml Vial ONE (09:19)
[2023-03-05] MEDS ORDERED: Zofran 4 MG/2 ML VIAL ONE (09:19)
[2023-03-05] MEDS ORDERED: SUBLIMAZE 100 MCG/2 ML ONE ×2 (09:20→11:44)
[2023-03-05] MEDS ORDERED: Versed 2 MG/2 ML Injection ONE (09:32)
[2023-03-05] MEDS ORDERED: TORAdol 30 mg Injection ONE (10:38)
--- NOTE | 2023-03-05 11:18 | XRAY ---
Indication: Right foot hardware removal and 5th metatarsal head resection. Intraoperative fluoroscopy provided for 43 seconds. 5 digital spot images submitted for interpretation ultimately demonstrates partial resection distal 5th metatarsal. Correlate with operative findings/report. Incidental prior fusion 3rd-5th toes with intact hardware.
[2023-03-05 12:17] VITALS: RESP 18
[2023-03-05 12:57] VITALS: BP 131/65; PULSE 56; TEMP 97.1; O2SAT 94
--- NOTE | 2023-03-05 15:41 | XRAY ---
43 seconds of fluoroscopy was used in surgery for right hardware removal and right fifth metatarsal head resection.
--- NOTE | 2023-03-08 11:22 | OP ---
SURGERY DATE/TIME: 03/05/2023 0937 PREOPERATIVE DIAGNOSES: 1) Right traumatic hematoma right leg. 2) Painful hardware right foot fifth metatarsal. 3) Metatarsal deformity. 4) Right foot pain. 5) Right leg pain. POSTOPERATIVE DIAGNOSES: 1) Right traumatic hematoma right leg. 2) Painful hardware right foot fifth metatarsal. 3) Metatarsal deformity. 4) Right foot pain. 5) Right leg pain. PROCEDURES: 1) Incision and drainage of traumatic hematoma right lower extremity. 2) Removal of hardware. 3) Incision of fifth metatarsal head. SURGEON: Shaheed Miller DPM. VOCATIONAL REHAB CONSULTANT: None. ANESTHESIA: Monitored anesthesia care. HEMOSTASIS: Pressure dressing. ESTIMATED BLOOD LOSS: 10 cc. MATERIALS: 4-0 Monocryl, bone wax, 3-0 Nylon. INJECTABLES: 20 cc of a 1:1 mixture of 1% lidocaine plain and 0.5% bupivacaine plain injected in a V block-type fashion to the hematoma and a mini-Sibley block to the fifth metatarsal. INDICATION FOR SURGERY: Michell is a very pleasant 67-year-old female well known to my service. In recent history, she did have a tailor's bunion correction secondary to lateral column overload and pain underneath the fifth metatarsal. The patient did also have a gastrocnemius resection. In recent history, the patient indicates multiple falls onto the leg and from the dorsal aspect of the foot she did have trauma which rebroke the fracture site over the dorsal aspect of the fifth metatarsal and plantar flexed it defeating the purpose of the procedure secondary to her fat pad atrophy. From the standpoint, the patient did have pain. He did also have some concern of pain to the posterior aspect of the calf for which deep vein thrombosis was suspected. Ultrasound was obtained demonstrating a fluid collection of 5.0 x 3.5 at its biggest margins. As a result and given clinical appearance, suspected traumatic hematoma was apparent off the posterior aspect of the calf. As a result, discussion was held with the patient in regards to options and the patient was having a significant amount of pain in the posterior aspect of the calf as well as failure of the surgical intervention to the fifth metatarsal. As a result we decided to remove the hardware to the fifth metatarsal and resect the metatarsal head correcting the issue all together as well as draining the hematoma at the posterior aspect of the calf. The patient understands all risks, complications and benefits of surgical intervention at this time including but not limited to infection, hematoma, seroma, possibility of delayed wound healing, nonwound healing, nerve damage, possibility of failure of surgical intervention and possible need for surgical intervention at a later date. No guarantees were provided as to the outcome of surgical intervention. Plenty of time was allowed for the patient to ask questions which were answered to her apparent satisfaction. It is at this time we decided to proceed with surgical intervention. DESCRIPTION OF PROCEDURE AND FINDINGS: The patient is brought into the OR and placed on the OR table in the supine position. At this time monitored anesthesia care was administered until the patient was sedated. The right lower extremity was prepped and draped in the typical sterile fashion and lowered onto the surgical field. At this time a V block was performed just proximal to the hematoma and to the fifth metatarsal in a mini-Sibley technique utilizing 20 cc total of a 1:1 mixture of 1% lidocaine plain and 0.5% bupivacaine plain. Following this, an incision was made at the posterior aspect of the calf overlying the hematoma where immediately in the posterior compartment a large hematoma approximately 10 cc was evacuated. Its clot was identified and a significant amount of scar tissue was identified just deep to the hematoma. From that standpoint, copious amounts of sterile saline under Pulsavac were utilized to flush out the site. Following this attention was directed to the lateral aspect of the forefoot following the previous incision line. The incision was carried down. The K-wire was introduced into the screw at the lateral aspect of the base of the metatarsal and following this an angled cut with a beveled orientation took place utilizing an 18 mm sagittal saw. Following this copious amounts of sterile saline were utilized to flush the surgical site. Bone wax was introduced over the bone and a rongeur was utilized to remove any prominent surfaces over the fifth metatarsal. Following this copious amounts of sterile saline were used to flush all surgical sites. 4.0 Monocryl was utilized to coapt the subcutaneous edges of the skin and 3-0 Nylon were utilized to coapt the skin in a horizontal mattress-type fashion. A dressing consisting of Betadine, Adaptic, 4x4, Kerlix and TING was applied to the patient's right lower extremity. The patient was returned to the postoperative anesthesia care unit with vital signs stable and vascular status intact. The patient handled the anesthesia as well as the procedure without significant complication. Postoperative orders as indicated in the patient's discharge chart.
== END 2023-03-05 12:55 | disposition home or self-care (01) ==
LOC: SDC 07:02
PROVIDERS: ATTEND Podiatrist Foot & Ankle Surgery
DX: S80.11XA Contusion of right lower leg, initial encounter (principal); T84.84XA Pain due to internal orthopedic prosthetic devices, implants and grafts, initial encounter; M21.961 Unspecified acquired deformity of right lower leg; M79.671 Pain in right foot; M79.661 Pain in right lower leg
CPT/HCPCS: 20680; 27603; 28308; 36415; 73630; 76000; 80053; 82947; 85027; J0690; J1885; J2001; J2250; J2405; J2704; J3010

== ENCOUNTER 2023-04-02 14:36 | Emergency (ER) | payer MEDICARE ==
[2023-04-02 15:01] VITALS: TEMP 98; O2SAT 96
--- NOTE | 2023-04-02 16:25 | XRAY ---
Indication: Right frontal head injury following fall one day earlier. Multiple contiguous axial images obtained through the head without contrast. Comparison: None Age-appropriate global atrophy and mild periventricular degenerative micro-ischemia bilaterally. No acute intracranial hemorrhage, abnormal extra-axial fluid collection, or mass effect. Fourth ventricle is midline without hydrocephalus. Small right frontal scalp hematoma. Bony calvarium intact. Visualized paranasal sinuses and mastoid air cells are clear. Impression: Right frontal scalp hematoma. Otherwise nonacute senile brain.
--- NOTE | 2023-04-02 16:27 | XRAY ---
Indication: Right frontal head injury following fall one day earlier. Multiple contiguous axial images obtained through the cervical spine. Sagittal and coronal reformatted images obtained. Comparison: None Axial images negative for acute fracture, suspicious bony lesions, or spinal canal stenosis. Minimal/mild C4-C7 degenerative endplate spurring and mild multilevel bilateral degenerative facet hypertrophy. Sagittal and coronal reformatted images demonstrates mid cervical lordotic straightening, positional versus paraspinal spasm. Minimal levoscoliosis centered at cervical thoracic junction. C5-C6 disc space narrowing. No acute compression fracture, subluxation, or jumped facet. Normal appearing craniocervical junction. Visualized noncontrasted soft tissues including lung apices are unremarkable. Impression: Cervical lordotic straightening, scoliosis, and multilevel degenerative changes. Negative acute fracture/subluxation.
--- NOTE | 2023-04-02 16:29 | XRAY ---
Indication: Pain following fall. Comparison: None 3 view right knee demonstrates osteopenia and total knee arthroplasty with intact prosthesis. No other bony, articular, or soft tissue abnormalities.
--- NOTE | 2023-04-02 16:30 | ERPHSYRPT ---
- History of Present Illness Source: patient Exam Limitations: no limitations Patient Subjective Stated Complaint: Pt reports she was walking outside with her granddaughter when she stepped in a hole and fell. Hit right side of forehead on concrete, denies any loss of conscioussness. Also attempted to catch self with right hand causing injury to right hand and wrist. Triage Nursing Assessment: Pt alert and oriented x3. Respirations easy/nonlabored. Skin w/p/d. Bruising and swelling to right side of forehead. Swelling to right hand/wrist. PERRL. Physician History: Patient is a 67-year-old female who tripped on the sidewalk and fell yesterday. Patient has a small glabellar hematoma and states that she was dazed without loss of conscious. She also has mild headache at this time along with mild cervical spine pain. Patient also complains of right hand and wrist pain and also right knee pain which is mild. She has no T or L-spine pain and also denies chest pain, abdominal pain, hip pain, focal weakness, and syncope. Pain is moderate, and she refuses any pain meds at this time. Occurred: yesterday Reason for Fall: tripped (Tripped on the sidewalk) Injuries/Pain Location: head, neck, upper extremity, lower extremity Loss of Consciousness: no loss of consciousness, dazed Severity of Pain-Max: moderate Severity of Pain-Current: moderate Modifying Factors: Improves With: nothing Associated Symptoms (Fall): extremity injury, headache Allergies/Adverse Reactions: latex Allergy (Severe, Verified 04/02/23 14:55) Blisters "wraps that is going to be on for a while." Penicillins Adverse Reaction (Intermediate, Verified 04/02/23 14:55) Swelling pt states "i can and have taken keflex with no problems" cefdinir Adverse Reaction (Verified 04/02/23 14:55) clindamycin Adverse Reaction (Verified 04/02/23 14:55) Nausea and Vomiting gentamicin Adverse Reaction (Verified 04/02/23 14:55) levofloxacin [From Levaquin] Adverse Reaction (Verified 04/02/23 14:55) Nausea and Vomiting Sulfa (Sulfonamide Antibiotics) Adverse Reaction (Verified 04/02/23 14:55) Dr. JACOME. Home Medications: Albuterol Sulfate [Proair Digihaler] 90 mcg IH QID 03/03/21 [History] Albuterol/Ipratropium 3ml Neb* [DUONEB 0.5-3 MG/3 ml Neb] 1 ea IH UD 03/03/21 [History] Esomeprazole Magnesium [Nexium] 40 mg PO DAILY 03/03/21 [History] Fluticasone/Salmeterol [Advair 250-50 Diskus] 1 ea IH BID 03/03/21 [History] Folic Acid 400 mcg PO DAILY 03/03/21 [History] Furosemide 20 mg [Lasix 20 mg] 20 mg PO BID PRN PRN 03/03/21 [History] Gabapentin [Neurontin ] 100 mg PO DAILY 03/03/21 [History] Lifitegrast [Xiidra] 1 each OP BID 03/03/21 [History] Montelukast Sodium 10 mg [Singulair 10 MG] 10 mg PO HS 03/03/21 [History] Nebivolol HCl 5 MG [Bystolic 5 MG] 5 mg PO DAILY 03/03/21 [History] Olopatadine HCl 2.5 ml OP BID 03/03/21 [History] Pravastatin Sodium 20 mg PO DAILY 03/03/21 [History] Trazodone HCl 50 mg [Desyrel 50 mg] 25 mg PO DAILY 03/03/21 [History] Hydrocodone/Acetaminophen [Hydrocodone-Acetamin 10-325 mg] 1 tab PO UD PRN 12/01/22 [History] Levocetirizine Dihydrochloride 5 mg PO DAILY 12/01/22 [History] Nystatin 60 ml [Nystatin SUSPENSION 60 ML] 1 dose PO UD PRN 12/01/22 [History] Azelastine Nasal [Astelin Nasal] 30 ml NS BID 03/04/23 [History] Betamethasone Dipropionate 60 ml TP DAILY PRN PRN 03/04/23 [History] Diclofenac Sodium [Voltaren Arthritis Pain] 20 gm TP UD 03/04/23 [History] Ergocalciferol (Vitamin D2) [Vitamin D2] 50,000 unit PO Q7D 03/04/23 [History] Fluticasone Propionate 15 gm TP UD 03/04/23 [History] Fluticasone/Salmeterol [Advair 100-50 Diskus] 1 each IH UD 03/04/23 [History] Fluticasone/Umeclidin/Vilanter [Trelegy Ellipta 200-62.5-25] 1 each IH UD 03/04/23 [History] Gabapentin [Neurontin ] 300 mg PO HS 03/04/23 [History] Hydroxyzine HCl 25 mg [Atarax 25 mg] 25 mg PO DAILY PRN PRN 03/04/23 [History] Ketoconazole [Nizoral A-D] 200 ml TP DAILY PRN PRN 03/04/23 [History] Mupirocin [Centany] 30 gm TP BID 03/04/23 [History] Nitrofurantoin Macrocrystal [Nitrofurantoin] 50 mg PO HS 03/04/23 [History] Nystatin 60 ml [Nystatin SUSPENSION 60 ML] 60 ml PO QIDPRN PRN 03/04/23 [History] Ondansetron [Ondansetron Odt] 8 mg PO BIDPRN PRN 03/04/23 [History] Potassium Chloride 10 meq PO DAILY 03/04/23 [History] Pravastatin Sodium 20 mg PO HS 03/04/23 [History] Hx Tetanus, Diphtheria Vaccination/Date Given: No Hx Influenza Vaccination/Date Given: Yes Hx Pneumococcal Vaccination/Date Given: Yes Travel Risk - International Travel Have you traveled outside of the country in past 3 weeks: No - Coronavirus Screening Are you exhibiting any of the following symptoms?: No Close contact with a COVID-19 positive Pt in past 14-21 Days: No - Vaccine Status Have you recieved a Covid-19 vaccination: Yes 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[employer] - Vaccination Dates Date of 2cond Vaccination (if applicable): 08/30/20 - Review of Systems Constitutional: No Symptoms Eyes: No Symptoms Ears, Nose, & Throat: No Symptoms Respiratory: No Symptoms Cardiac: No Symptoms Abdominal/Gastrointestinal: No Symptoms Genitourinary Symptoms: No Symptoms Musculoskeletal: Neck Pain Skin: No Symptoms Neurological: No Symptoms, Headache Psychological: No Symptoms Endocrine: No Symptoms Hematologic/Lymphatic: No Symptoms Immunological/Allergic: No Symptoms - Past Medical History Pertinent Past Medical History: Yes Neurological History: Peripheral Neuropathy ENT History: Cataracts Cardiac History: High Cholesterol, Hypertension, Other Respiratory History: Asthma, COPD Endocrine Medical History: Diabetes Type II Musculoskeletal History: Arthritis, Fractures, Rheumatoid Arthritis, Other GI Medical History: GERD History: Other Psycho-Social History: No Pertinent History Female Reproductive Disorders: No Pertinent History, Other Other Medical History: L Ankle Fracture (Green Fracture), Multiple toe fractures, L Foot Fracture, tonsillectomy, addenoidectomy, Rheumatic Fever (Childhood), Cholecystectomy, R TKA (2016), 3 hernia repairs, Hammer toes repairs, multiple foot surgeries, B cataract removal (2017), R Hand Fracture - Past Surgical History Past Surgical History: Yes Neuro Surgical History: No Pertinent History Cardiac: No Pertinent History Respiratory: No Pertinent History Gastrointestinal: Cholecystectomy, Hernia Repair Genitourinary: No Pertinent History Musculoskeletal: Joint Replacement Female Surgical History: Dilation & Curettage, Other Other Surgical History: R KNEE REPLACED, INGROWN TONAILS. HAMMER TOE FIXED - Social History Smoking Status: Former smoker Exposure to second hand smoke: No Drug Use: none Patient Lives Alone: Yes Significant Family History: no pertinent family hx - Nursing Vital Signs Nursing Vital Signs: Initial Vital Signs Temperature 98 F 04/02/23 14:48 Pulse Rate 70 04/02/23 14:48 Respiratory Rate 17 04/02/23 14:48 Blood Pressure 122/82 04/02/23 14:48 O2 Sat by Pulse Oximetry 96 04/02/23 14:48 Pain Scale Pain Intensity 6 Within normal limits - [place] Coma Score Best Eye Response ([place]): (4) open spontaneously Best Verbal Response ([place]): (5) oriented Best Motor Response ([place]): (6) obeys commands [place] Total: 15 - Physical Exam General Appearance: no apparent distress Head Injury: swelling (Small right glabellar hematoma) Eye Exam: PERRL/EOMI, eyes nml inspection ENT Exam: airway nml (No otorrhea or rhinorrhea noted) Neck Exam: other (C-spine with mild tenderness to palpation) Respiratory/Chest Exam: normal breath sounds, No respiratory distress (Thorax nontender to palpation) Cardiovascular Exam: regular rate/rhythm, normal peripheral pulses, No murmur Gastrointestinal Exam: soft, normal bowel sounds, No tenderness Back Exam: normal inspection (No T or L-spine tenderness to palpation) Extremity Exam: other (Mild right wrist tenderness to palpation, mild right hand tenderness to palpation, mild right knee tenderness to palpation. Deformities noted of upper or lower extremities. 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 Lehman/scapholunate widening concerning for ligamentous tear) Knee X-ray Interpretation: Reviewed by me (Right knee negative per Dr. Lehman/prosthesis intact.) Hand X-ray Interpretation: Reviewed by me (Right hand negative per Dr. Lehman.) - CT Exams Head CT Interpretation: Discussed w/radiologist (Right frontal scalp hematoma otherwise negative CT head productively) Cervical Spine CT Interpretation: Discussed w/radiologist (No fracture or dislocation productively.) Ordered Tests: Active Orders 24 hr Category Date Time Status Splint STAT Care 04/02/23 16:36 Completed CERVICAL SPINE WO CONTRAST [CT] Stat Exams 04/02/23 15:30 Completed HAND (MINIMUM 3 VIEWS) Stat Exams 04/02/23 15:31 Completed HEAD WITHOUT CONTRAST [CT] Stat Exams 04/02/23 15:29 Completed KNEE (3 VIEWS) Stat Exams 04/02/23 15:31 Completed WRIST (MIN 3 VIEWS) Stat Exams 04/02/23 15:31 Completed - Progress Progress: improved Progress Note: 04/02/23 17:12 Nursing note and vital signs reviewed. No food or housing insecurities noted. All CAT scan results reviewed and shared with patient. All x-ray results reviewed and shared with patient. Cock up splint applied right hand and wrist per nursing/neurovascular intact post application. Patient is to follow-up with the Ortho clinic for possible right hand wrist ligamentous injury. Patient recommended ice down her injuries for 12 to 24 hours. Patient also stated she has hydrocodone at home which she will take for pain. Serial neuro exams negative during stay. Patient refused pain meds during her entire stay. Counseled pt/family regarding: diagnosis, need for follow-up, rad results Medical Desision Making - Diagnostic Testing Radiological Interpretation: Reviewed by me - Risk of complications The pt has a mod risk of morbidity or mortality based on: Need for prescription drug management - Departure Departure Disposition: Home Clinical Impression: Minor closed head injury, Cervical strain, acute, Contusion of right knee, Contusion of right hand, Injury of ligament of right hand Condition: Stable Critical Care Time: No Referrals: DEZ LACEY [Primary Care Provider] - Follow up/PCP as directed MELA - ZAYDA CIFUENTES NP [NON-STAFF PHY W/O PRIVILEGES] - Follow up/PCP as directed Instructions: Contusion (DC), Minor Head Injury (DC), Common Wrist Injuries (DC) Additional Instructions: Ice for 12 to 24 hours. Continue with home pain meds as needed. Follow-up in orthopedic clinic on Wednesday 8 AM to 10 AM/no appointment needed. Return to ER as needed.
--- NOTE | 2023-04-02 16:31 | XRAY ---
Indication: Pain following fall. Comparison: None 3 view right wrist demonstrates osteopenia, mild 1st metacarpal multangular degenerative changes, and widened scapholunate interval concerning for underlying ligamentous tear. No other bony, articular, or soft tissue abnormalities.
--- NOTE | 2023-04-02 16:31 | XRAY ---
Indication: Pain following fall. Comparison: None 3 view right hand demonstrates osteopenia, minimal/mild degenerative changes all IP joints, and mild 1st metacarpal multangular degenerative changes. No other bony, articular, or soft tissue abnormalities.
[2023-04-02 16:42] VITALS: BP 127/76; PULSE 72; RESP 16
== END 2023-04-02 16:49 | disposition home or self-care (01) ==
LOC: ED 14:36
DX: S09.90XA Unspecified injury of head, initial encounter (principal); S16.1XXA Strain of muscle, fascia and tendon at neck level, initial encounter; S80.01XA Contusion of right knee, initial encounter; S60.221A Contusion of right hand, initial encounter; S63.91XA Sprain of unspecified part of right wrist and hand, initial encounter; W01.198A Fall on same level from slipping, tripping and stumbling with subsequent striking against other object, initial encounter; Y93.01 Activity, walking, marching and hiking; E78.5 Hyperlipidemia, unspecified; I10 Essential (primary) hypertension; E11.42 Type 2 diabetes mellitus with diabetic polyneuropathy; Z79.891 Long term (current) use of opiate analgesic; Z79.899 Other long term (current) drug therapy
CPT/HCPCS: 70450; 72125; 73110; 73130; 73562; 99283; L3908

== ENCOUNTER 2023-10-01 15:37 | Emergency (ER) | payer MEDICARE ==
[2023-10-01 16:02] VITALS: BP 126/83; PULSE 67; RESP 18; O2SAT 98
--- NOTE | 2023-10-01 16:02 | ERPHSYRPT ---
- History of Present Illness Time Seen by Provider: 10/01/23 16:01 Source: patient Exam Limitations: no limitations Physician History: This is an obese 68-year-old white female patient of Dr. Velez who was outside in her yard yesterday and was walking on her yard/grass which is very uneven. Somehow, the patient states that she stepped wrong and now has pain in her right foot. She does not have pain in her ankle. Patient has had surgery in that right foot in the past. Occurred: yesterday Quality: aching Severity of Pain-Max: mild (Moderate) Severity of Pain-Current: mild (To moderate) Lower Extremities Pain: foot: right Modifying Factors: Improves With: movement Associated Symptoms: other (Hurts to bear weight but can do so and has been doing so.) Allergies/Adverse Reactions: latex Allergy (Severe, Verified 10/01/23 16:13) Blisters "wraps that is going to be on for a while." Penicillins Adverse Reaction (Intermediate, Verified 10/01/23 16:13) Swelling pt states "i can and have taken keflex with no problems" cefdinir Adverse Reaction (Verified 10/01/23 16:13) clindamycin Adverse Reaction (Verified 10/01/23 16:13) Nausea and Vomiting gentamicin Adverse Reaction (Verified 10/01/23 16:13) levofloxacin [From Levaquin] Adverse Reaction (Verified 10/01/23 16:13) Nausea and Vomiting Sulfa (Sulfonamide Antibiotics) Adverse Reaction (Verified 10/01/23 16:13) Dr. JACOME. Home Medications: Albuterol Sulfate [Proair Digihaler] 90 mcg IH QID 03/03/21 [History] Albuterol/Ipratropium 3ml Neb* [DUONEB 0.5-3 MG/3 ml Neb] 1 ea IH UD 03/03/21 [History] Esomeprazole Magnesium [Nexium] 40 mg PO DAILY 03/03/21 [History] Fluticasone/Salmeterol [Advair 250-50 Diskus] 1 ea IH BID 03/03/21 [History] Folic Acid 400 mcg PO DAILY 03/03/21 [History] Furosemide 20 mg [Lasix 20 mg] 20 mg PO BID PRN PRN 03/03/21 [History] Gabapentin [Neurontin ] 100 mg PO DAILY 03/03/21 [History] Lifitegrast [Xiidra] 1 each OP BID 03/03/21 [History] Montelukast Sodium 10 mg [Singulair 10 MG] 10 mg PO HS 03/03/21 [History] Nebivolol HCl 5 MG [Bystolic 5 MG] 5 mg PO DAILY 03/03/21 [History] Olopatadine HCl 2.5 ml OP BID 03/03/21 [History] Pravastatin Sodium 20 mg PO DAILY 03/03/21 [History] Trazodone HCl 50 mg [Desyrel 50 mg] 25 mg PO DAILY 03/03/21 [History] Hydrocodone/Acetaminophen [Hydrocodone-Acetamin 10-325 mg] 1 tab PO UD PRN 12/01/22 [History] Levocetirizine Dihydrochloride 5 mg PO DAILY 12/01/22 [History] Nystatin 60 ml [Nystatin SUSPENSION 60 ML] 1 dose PO UD PRN 12/01/22 [History] Azelastine Nasal [Astelin Nasal] 30 ml NS BID 03/04/23 [History] Betamethasone Dipropionate 60 ml TP DAILY PRN PRN 03/04/23 [History] Diclofenac Sodium [Voltaren Arthritis Pain] 20 gm TP UD 03/04/23 [History] Ergocalciferol (Vitamin D2) [Vitamin D2] 50,000 unit PO Q7D 03/04/23 [History] Fluticasone Propionate 15 gm TP UD 03/04/23 [History] Fluticasone/Salmeterol [Advair 100-50 Diskus] 1 each IH UD 03/04/23 [History] Fluticasone/Umeclidin/Vilanter [Trelegy Ellipta 200-62.5-25] 1 each IH UD 03/04/23 [History] Gabapentin [Neurontin ] 300 mg PO HS 03/04/23 [History] Hydroxyzine HCl 25 mg [Atarax 25 mg] 25 mg PO DAILY PRN PRN 03/04/23 [History] Ketoconazole [Nizoral A-D] 200 ml TP DAILY PRN PRN 03/04/23 [History] Mupirocin [Centany] 30 gm TP BID 03/04/23 [History] Nitrofurantoin Macrocrystal [Nitrofurantoin] 50 mg PO HS 03/04/23 [History] Nystatin 60 ml [Nystatin SUSPENSION 60 ML] 60 ml PO QIDPRN PRN 03/04/23 [History] Ondansetron [Ondansetron Odt] 8 mg PO BIDPRN PRN 03/04/23 [History] Potassium Chloride 10 meq PO DAILY 03/04/23 [History] Pravastatin Sodium 20 mg PO HS 03/04/23 [History] Hx Tetanus, Diphtheria Vaccination/Date Given: No Hx Influenza Vaccination/Date Given: Yes Hx Pneumococcal Vaccination/Date Given: Yes Travel Risk - International Travel Have you traveled outside of the country in past 3 weeks: No - Emerging Infectious Disease Are you exhibiting symptoms associated with any current EIDs: No - Review of Systems Constitutional: No Symptoms Eyes: No Symptoms Ears, Nose, & Throat: No Symptoms Respiratory: No Symptoms Cardiac: No Symptoms Abdominal/Gastrointestinal: No Symptoms Genitourinary Symptoms: No Symptoms Musculoskeletal: Injury (Right foot) Skin: No Symptoms Neurological: No Symptoms Psychological: No Symptoms Endocrine: No Symptoms Hematologic/Lymphatic: No Symptoms Immunological/Allergic: No Symptoms All Other Systems: Reviewed and Negative - Past Medical History Pertinent Past Medical History: Yes Neurological History: No Pertinent History, Peripheral Neuropathy ENT History: Cataracts Cardiac History: High Cholesterol, Hypertension, Other Respiratory History: Asthma, COPD Endocrine Medical History: Diabetes Type II, Other Musculoskeletal History: Osteoarthritis GI Medical History: GERD History: Other Psycho-Social History: No Pertinent History Female Reproductive Disorders: No Pertinent History, Other Other Medical History: PATIENT REPORTS HEARTBURN MEDICINE IS "MESSING WITH HER KIDNEYS". REPORTS HAD RHEUMATIC FEVER WITH RESIDUAL OF HEART MURMUR/LEAKY VALVE. HX OF 5 SURGERIES ON FEET DUE TO HAMMER TOES. HX RIGHT TOTAL KNEE. - Past Surgical History Past Surgical History: Yes Neuro Surgical History: No Pertinent History Cardiac: No Pertinent History Respiratory: No Pertinent History Gastrointestinal: Cholecystectomy, Hernia Repair Genitourinary: No Pertinent History Musculoskeletal: Joint Replacement Female Surgical History: Dilation & Curettage, Other Other Surgical History: R KNEE REPLACED, INGROWN TONAILS. HAMMER TOE FIXED Significant Family History: no pertinent family hx - Social History Smoking Status: Former smoker Exposure to second hand smoke: No Drug Use: none Patient Lives Alone: Yes - Nursing Vital Signs Nursing Vital Signs: Initial Vital Signs Pulse Rate 67 10/01/23 16:01 Respiratory Rate 18 10/01/23 16:01 Blood Pressure 126/83 10/01/23 16:01 O2 Sat by Pulse Oximetry 98 10/01/23 16:01 Pain Scale Pain Intensity 7 - Physical Exam General Appearance: no apparent distress, alert, anxiety Eyes, Ears, Nose, Throat Exam: normal ENT inspection, moist mucous membranes Neck Exam: normal inspection, non-tender, supple, full range of motion Cardiovascular/Respiratory Exam: chest non-tender, no respiratory distress Gastrointestinal/Abdominal Exam: non-tender Back Exam: normal inspection, normal range of motion, No CVA tenderness, No vertebral tenderness Hips Exam: bilateral: non-tender, normal inspection, normal range of motion, no evidence of injury Legs Exam: bilateral leg: non-tender, normal inspection, normal range of motion, no evidence of injury Knees Exam: bilateral knee: non-tender, normal inspection, normal range of motion, no evidence of injury Ankle Exam: bilateral ankle: non-tender, normal inspection, normal range of motion, no evidence of injury Foot Exam: right foot: soft tissue tenderness, left foot: non-tender, normal inspection, normal range of motion, no evidence of injury Neuro/Tendon Exam: normal sensation, normal motor functions, normal tendon functions, responds to pain, no evidence tendon injury Mental Status Exam: alert, oriented x 3, cooperative Skin Exam: normal color, warm, dry SpO2 Interpretation: normal O2 Delivery: Room Air - Course Nursing assessment & vital signs reviewed: Yes Ordered Tests: Active Orders 24 hr Category Date Time Status FOOT (MINIMUM 3 VIEWS) Stat Exams 10/01/23 16:01 Taken - Progress Progress: unchanged Progress Note: 10/01/23 16:48 This patient medical issue is 1 of low complexity. The level of complexity in the workup performed is based on review the patient's past medical history, review of the patient's medication list, review the patient drug allergy list, history of present illness and physical findings on examination. The workup in this patient includes x-ray of the patient's right foot. I interpreted the preliminary report of the patient's right foot x-ray. I do not see an acute fracture or dislocation. Patient does have surgical pins in place and digits 345 of her right foot. Counseled pt/family regarding: diagnosis, need for follow-up, rad results Medical Desision Making - Diagnostic Testing Diagnostic test were ordered, analyzed, and reviewed by me: Yes Radiological Interpretation: Interpreted by me - Risk of complications Low Risk: Low risk of morbidity from additional dx testing or treatment - Departure Departure Disposition: Home Clinical Impression: Right foot pain Condition: Stable Critical Care Time: No Referrals: NIECY VELEZ DO [Primary Care Provider] - Follow up/PCP as directed Additional Instructions: Ice pack or ice bath 3 times a day to right foot for 72 hours. Call your medical cash poster on Wednesday morning, 10/04/2023, to make arrangements for follow-up appointment in the next 3 days. Take your medications as prescribed. Prescriptions: Oxycodone HCl/Acetaminophen [Percocet 5-325 mg Tablet] 1 each PO Q12H PRN PRN #6 tablet MDD 2 PRN Reason: Moderate To Severe Pain
[2023-10-01] MEDS ORDERED: PERCOCET TABLET 5/325MG ONE (16:56)
[2023-10-01] MEDS: PERCOCET TABLET 5/325MG PO STA (17:00)
--- NOTE | 2023-10-01 23:19 | XRAY ---
Indication: Pain. 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 No new/acute abnormalities.
== END 2023-10-01 17:06 | disposition home or self-care (01) ==
LOC: ED 15:37
DX: M79.671 Pain in right foot (principal); E78.5 Hyperlipidemia, unspecified; I10 Essential (primary) hypertension; E11.42 Type 2 diabetes mellitus with diabetic polyneuropathy; Z79.891 Long term (current) use of opiate analgesic; Z79.899 Other long term (current) drug therapy
CPT/HCPCS: 73630; 99282; A9270-GY

== ENCOUNTER 2024-08-03 07:10 | Day surgery (SDC) | payer MEDICARE, OTHER ==
--- NOTE | 2024-08-02 12:39 | HP ---
HISTORY AND PHYSICAL HISTORY OF PRESENT ILLNESS: Patient is a 69-year-old female who presents with history of polyps. Colonoscopy was back in 2018. She has some constipation, lower abdominal pain, no bleeding. Father had colon cancer. She does have some heartburn. She has been on some Nexium. States she had a history of hiatal hernias and gastric polyps. PAST MEDICAL HISTORY: Hyperlipidemia, hypertension, arthritis, kidney disease, diabetes, COPD. HOME MEDICATIONS: Ketoconazole, Zyrtec, Singulair, Nexium, empagliflozin, potassium, semaglutide, duloxetine, nebivolol, fluticasone, gabapentin, atorvastatin, vitamin D2, Lifitegrast eye drops. ALLERGIES: Levaquin, neomycin, and penicillin. PAST SURGICAL HISTORY: Cataracts, foot surgery, cholecystectomy, tonsillectomy. SOCIAL HISTORY: Occasional alcohol. FAMILY HISTORY: Breast cancer and colon cancer. REVIEW OF SYSTEMS: CONSTITUTIONAL: Denies fever or chills. CHEST: Denies shortness of breath. CARDIOVASCULAR: Denies chest pain. ABDOMEN: Reports epigastric pain. PHYSICAL EXAMINATION: GENERAL: No acute distress. CARDIOVASCULAR: Regular rate and rhythm. RESPIRATORY: Nonlabored. No shortness of breath. ABDOMEN: Soft. IMPRESSION: Epigastric pain, history of polyps. PLAN: EGD and colonoscopy with Dr. Mayank Larsen. This report was dictated for Dr. Larsen by Bhavya Lloyd NP.
[2024-08-03 07:50] LABS: ANION GAP 12.9 MEQ/L (5-15); Calcium 8.4 mg/dL (8.4-10.2); Creatinine 1 0.84 mg/dL (0.52-1.04); EST GLOMERULAR FILTRATION RATE 74.7 ML/MIN; Potassium 3.5 mmol/L (3.5-5.1)
[2024-08-03] MEDS ORDERED: Lactated Ringers 1,000 ML IV ONE (07:53)
[2024-08-03] MEDS: Lactated Ringers 1,000 ML IV SCH (08:03)
[2024-08-03] MEDS ORDERED: propofoL IV ONE ×2 (09:24→09:42)
[2024-08-03 10:20] VITALS: RESP 18
[2024-08-03 10:30] VITALS: BP 129/74; PULSE 65; TEMP 98.3; O2SAT 97
--- NOTE | 2024-08-04 10:34 | OP ---
SURGERY DATE/TIME: 08/03/2024 [id number] PREOPERATIVE DIAGNOSES: 1) Epigastric pain. 2) Followup of polyps. POSTOPERATIVE DIAGNOSES: 1) Patient has grade 2/4 gastroesophageal reflux disease. 2) She has a 1-inch hiatal hernia. 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 PROCEDURES: 1) Esophagogastroduodenoscopy. 2) Colonoscopy. a. Complete to cecum. b. Five polyps: Three in the splenic flexure, 1 jar; 1 in the hepatic flexure, 1 jar; 1 in the cecum, 1 jar. All of the polyps were right in the 1 cm range. SURGEON: Mayank Larsen MD. DESCRIPTION OF PROCEDURE AND FINDINGS: Operative scope introduced. Pharyngoesophageal junction normal. Esophagus satisfactory. EG junction had a rim of esophagitis grade 2, a 1-inch hiatal hernia. There were about 100 PIP polyps, nothing special. Nothing specific. They all looked the same. Pylorus normal. Duodenal bulb normal. Second portion normal. There was an accessory ampulla in the duodenal bulb that was normal. Scope withdrawn. Looped around itself. A 1-inch hiatal hernia. Scope withdrawn. Anal digital examination satisfactory. Scope introduced. Scope advanced to the cecum. Base of the cecum, ileocecal valve, and appendiceal orifice were satisfactory. One polyp of 1 cm about 2 inches up in the cecum taken with hot biopsy forceps. Polyp, 1 cm, in the hepatic flexure, taken with the hot biopsy forceps. There were three in the splenic flexure within a 6-inch area, all taken with hot biopsy forceps. Scope was then withdrawn. Satisfactory rest of the exam. Pathology pending. Followup exam in 3 years.
== END 2024-08-03 10:42 | disposition home or self-care (01) ==
LOC: SDC 07:10
PROVIDERS: ATTEND Surgery
DX: Z09 Encounter for follow-up examination after completed treatment for conditions other than malignant neoplasm (principal); Z86.0100 Personal history of colon polyps, unspecified; Z80.0 Family history of malignant neoplasm of digestive organs; R10.13 Epigastric pain; K21.9 Gastro-esophageal reflux disease without esophagitis; K44.9 Diaphragmatic hernia without obstruction or gangrene; K31.7 Polyp of stomach and duodenum; D12.0 Benign neoplasm of cecum; D12.3 Benign neoplasm of transverse colon
CPT/HCPCS: 36415; 80048; 93005; J2704

== ENCOUNTER 2024-10-01 13:55 | Emergency (ER) | payer MEDICARE, OTHER ==
[2024-10-01 14:12] VITALS: BP 125/67; PULSE 74; RESP 18; TEMP 97.7; O2SAT 98
[2024-10-01] MEDS ORDERED: Sodium Chloride 0.9% 1000 ML 1,000 ML ONE (14:25)
[2024-10-01] MEDS ORDERED: Pepcid 20 MG VIAL IV ONE (14:25)
[2024-10-01] MEDS ORDERED: Zofran 4 MG/2 ML VIAL ONE (14:25)
[2024-10-01 14:31] LABS: Absolute Neutrophil Ct (ANC) 7.08 x10^3/uL (1.56-6.13); BASOPHIL % 0.2 % (0.1-1.2); Basophil (Absolute #) 0.02 x10^3/uL (0.01-0.08); Eosinophil % 0.5 % (0.7-5.8); Eosinophil (Absolute #) 0.05 x10^3/uL (0.04-0.36); Hematocrit 43.1 % (34.1-44.9); IMMATURE GRAN # 0.03 x10^3u/L (0.001-0.031); IMMATURE GRAN % 0.3 % (0.001-0.429); Lymphocyte (Absolute #) 1.35 x10^3/uL (1.18-3.74); Lymphocytes % 14.7 % (19.3-51.7); Mean Cell Volume 90.5 fL (79.4-94.8); Mean Corpuscular Hemoglobin 29.4 pg (25.6-32.2); Mean Corpuscular Hgb Concent. 32.5 g/dL (32.2-35.5); Mean Platelet Volume 10.3 fL (9.4-12.3); Monocyte (Absolute #) 0.64 x10^3/uL (0.24-0.86); Neutrophil % 77.3 % (34.0-71.1); Platelet Count 166 x10^3/uL (182-369); Red Blood Count 4.76 x10^6/uL (3.93-5.22); Red Cell Distribution Width 13.9 % (11.7-14.4); White Blood Count 9.2 x10^3/uL (3.98-10.04)
[2024-10-01] MEDS: Zofran 4 MG/2 ML VIAL IV ONE (14:31)
[2024-10-01] MEDS: Sodium Chloride 0.9% 1000 ML 1,000 ML IV STA (14:32)
[2024-10-01] MEDS: Pepcid 20 MG VIAL IV ONE (14:32)
[2024-10-01 14:38] LABS: Appearance Clear (Clear); Bacteria None Seen /HPF (None Seen); Bilirubin Negative (Negative); Blood Negative (Negative); Epithelial Cells None Seen /HPF (None Seen); Glucose, Urine >=1000 mg/dL (Negative); Hyaline Casts NONE SEEN /LPF (0-2); Ketones Trace (Negative); Leukocyte Esterase Negative (Negative); Nitrite Negative (Negative); Ph 8.5 (4.6-8.0); Protein,Urine Dip Negative (Negative); RBC 0-2 /HPF (0-5); WBC 0-2 /HPF (0-5)
[2024-10-01 14:55] LABS: ALKALINE PHOSPHATASE 99 U/L (38-126); AMYLASE 51 U/L (30-110); ANION GAP 10.2 MEQ/L (5-15); BLOOD UREA NITROGEN 10 mg/dL (7-17); CHLORIDE 100 mmol/L (98-107); Calcium 9.1 mg/dL (8.4-10.2); Carbon Dioxide 29 mmol/L (22-30); Creatinine 1 0.88 mg/dL (0.52-1.04); EST GLOMERULAR FILTRATION RATE 70.7 ML/MIN; Glucose 92 mg/dL (74-106); LIPASE 45 U/L (23-300); Potassium 3.8 mmol/L (3.5-5.1); SGOT/AST 106 U/L (14-36); SGPT/ALT 94 U/L (0-35); SODIUM 136 mmol/L (135-145); TROPONIN < 0.012 ng/mL (0.000-0.033); Total Protein 7.3 g/dL (6.3-8.2)
--- NOTE | 2024-10-01 14:55 | ERPHSYRPT ---
- History of Present Illness Time Seen by Provider: 10/01/24 14:53 Historian: patient Exam Limitations: no limitations Patient Subjective Stated Complaint: patient been having vommiting x2 days Triage Nursing Assessment: patient alert and orientedx4, able to ambulate by self, skin warm dry and intact, bowel sounds present x4, Physician History: Patient is 69-year-old female came to the emergency room with complaining of nausea vomiting since yesterday till early childhood associate she could not eat anything so she came to the emergency room. She denies any blood in her stool or urine or any vomiting. Patient denies any fever chills headache chest pain shortness of breath. Timing/Duration: yesterday Activities at Onset: none Associated Symptoms: loss of appetite, nausea, vomiting Previous symptoms: no prior history Allergies/Adverse Reactions: latex Allergy (Severe, Verified 10/01/24 14:13) Blisters "wraps that is going to be on for a while." Penicillins Adverse Reaction (Intermediate, Verified 10/01/24 14:13) Swelling pt states "i can and have taken keflex with no problems" cefdinir Adverse Reaction (Verified 10/01/24 14:13) clindamycin Adverse Reaction (Verified 10/01/24 14:13) Nausea and Vomiting gentamicin Adverse Reaction (Verified 10/01/24 14:13) levofloxacin [From Levaquin] Adverse Reaction (Verified 10/01/24 14:13) Nausea and Vomiting Sulfa (Sulfonamide Antibiotics) Adverse Reaction (Verified 10/01/24 14:13) Dr. JACOME. Home Medications: Albuterol Sulfate [Proair Digihaler] 90 mcg IH QID 03/03/21 [History] Albuterol/Ipratropium 3ml Neb* [DUONEB 0.5-3 MG/3 ml Neb] 1 ea IH UD 03/03/21 [History] Esomeprazole Magnesium [Nexium] 40 mg PO DAILY 03/03/21 [History] Furosemide 20 mg [Lasix 20 mg] 20 mg PO BID PRN PRN 03/03/21 [History] Montelukast Sodium 10 mg [Singulair 10 MG] 10 mg PO HS 03/03/21 [History] Nebivolol HCl 5 MG [Bystolic 5 MG] 5 mg PO DAILY 03/03/21 [History] Olopatadine HCl 2.5 ml OP BID 03/03/21 [History] Trazodone HCl 50 mg [Desyrel 50 mg] 25 mg PO DAILY 03/03/21 [History] Hydrocodone/Acetaminophen [Hydrocodone-Acetamin 10-325 mg] 1 tab PO UD PRN 12/01/22 [History] Levocetirizine Dihydrochloride 5 mg PO DAILY 12/01/22 [History] Nystatin 60 ml [Nystatin SUSPENSION 60 ML] 1 dose PO UD PRN 12/01/22 [History] Azelastine Nasal [Astelin Nasal] 30 ml NS BID 03/04/23 [History] Diclofenac Sodium [Voltaren Arthritis Pain] 20 gm TP UD 03/04/23 [History] Fluticasone/Umeclidin/Vilanter [Trelegy Ellipta 200-62.5-25] 1 each IH UD 03/04/23 [History] Gabapentin [Neurontin ] 300 mg PO HS 03/04/23 [History] Hydroxyzine HCl 25 mg [Atarax 25 mg] 25 mg PO DAILY PRN PRN 03/04/23 [History] Ketoconazole [Nizoral A-D] 200 ml TP DAILY PRN PRN 03/04/23 [History] Nystatin 60 ml [Nystatin SUSPENSION 60 ML] 60 ml PO QIDPRN PRN 03/04/23 [History] Potassium Chloride 10 meq PO BID 03/04/23 [History] Atorvastatin Calcium 40 mg PO DAILY 07/21/24 [History] Duloxetine HCl 20 mg PO BID 07/21/24 [History] Empagliflozin [Jardiance] 25 mg PO DAILY 07/21/24 [History] Semaglutide [Ozempic] 0.25 mg SQ WEEKLY 07/21/24 [History] Hx Tetanus, Diphtheria Vaccination/Date Given: No Hx Influenza Vaccination/Date Given: Yes Hx Pneumococcal Vaccination/Date Given: Yes Immunizations Up to Date: Yes Travel Risk - International Travel Have you traveled outside of the country in past 3 weeks: No - Emerging Infectious Disease Are you exhibiting symptoms associated with any current EIDs: No - Review of Systems Constitutional: No Fever, No Chills Eyes: No Symptoms Ears, Nose, & Throat: No Symptoms Respiratory: No Cough, No Dyspnea Cardiac: No Chest Pain, No Edema, No Syncope Abdominal/Gastrointestinal: Nausea, Vomiting, No Abdominal Pain, No Diarrhea Genitourinary Symptoms: No Dysuria Musculoskeletal: No Back Pain, No Neck Pain Skin: No Rash Neurological: No Dizziness, No Focal Weakness, No Sensory Changes Psychological: No Symptoms Endocrine: No Symptoms All Other Systems: Reviewed and Negative - Past Medical History Pertinent Past Medical History: Yes Neurological History: No Pertinent History, Peripheral Neuropathy ENT History: Cataracts Cardiac History: High Cholesterol, Hypertension, Other Respiratory History: Asthma, COPD Endocrine Medical History: Diabetes Type II, Other Musculoskeletal History: Arthritis, Osteoarthritis GI Medical History: GERD History: Renal Disease, Other Psycho-Social History: No Pertinent History Female Reproductive Disorders: No Pertinent History, Other Other Medical History: PATIENT REPORTS HEARTBURN MEDICINE IS "MESSING WITH HER KIDNEYS". REPORTS HAD RHEUMATIC FEVER WITH RESIDUAL OF HEART MURMUR/LEAKY VALVE. HX OF 5 SURGERIES ON FEET DUE TO HAMMER TOES. HX RIGHT TOTAL KNEE. - Past Surgical History Past Surgical History: Yes Neuro Surgical History: No Pertinent History Cardiac: No Pertinent History Respiratory: No Pertinent History Gastrointestinal: Cholecystectomy, Hernia Repair Genitourinary: No Pertinent History Musculoskeletal: Joint Replacement Female Surgical History: Dilation & Curettage, Other Other Surgical History: R KNEE REPLACED, INGROWN TONAILS. HAMMER TOE FIXED Significant Family History: no pertinent family hx - Social History Smoking Status: Former smoker Drug Use: none - Social Determinants of Health Will the patient participate in the screening: Yes Do you worry about a steady place to live?: No Do you have any problems with any of the following?: No known problems In the past 12 months,have you had to go without utilities?: No Transportation Issues: No Has anyone in your support network made you feel unsafe?: No Have you or anyone in your house had to go w/o enough food: No - Nursing Vital Signs Nursing Vital Signs: Initial Vital Signs Temperature 97.7 F 10/01/24 14:05 Pulse Rate 74 10/01/24 14:05 Respiratory Rate 18 10/01/24 14:05 Blood Pressure 125/67 10/01/24 14:05 O2 Sat by Pulse Oximetry 98 10/01/24 14:05 Pain Scale Pain Intensity 0 - Physical Exam General Appearance: no apparent distress, alert Eye Exam: PERRL/EOMI, eyes nml inspection Ears, Nose, Throat Exam: normal ENT inspection, pharynx normal, moist mucous membranes Neck Exam: normal inspection, non-tender, supple, full range of motion Respiratory Exam: normal breath sounds, lungs clear, No respiratory distress Cardiovascular Exam: regular rate/rhythm, normal heart sounds Gastrointestinal/Abdomen Exam: soft, No tenderness, No mass Back Exam: normal inspection, normal range of motion, No CVA tenderness, No vertebral tenderness Extremity Exam: normal inspection, normal range of motion, pelvis stable Neurologic Exam: alert, oriented x 3, cooperative, normal mood/affect, nml cerebellar function, sensation nml, No motor deficits Skin Exam: normal color, warm, dry SpO2: 98 - Course Nursing assessment & vital signs reviewed: Yes Ordered Tests: Active Orders 24 hr Category Date Time Status AMYLASE Stat Lab 10/01/24 14:15 Completed CBC W DIFF Stat Lab 10/01/24 14:15 Completed CMP Stat Lab 10/01/24 14:15 Completed LIPASE Stat Lab 10/01/24 14:15 Completed TROPONIN Stat Lab 10/01/24 14:15 Completed UA W/RFX UR CULTURE Stat Lab 10/01/24 14:15 Completed Medication Summary Discontinued Medications Generic Name Dose Route Start Last Admin Trade Name Andres PRN Reason Stop Dose Admin Famotidine 20 mg 10/01/24 14:20 10/01/24 14:32 Famotidine 20 Mg/1 Vial IV 10/01/24 14:21 20 mg STAT ONE Administration Famotidine Confirm 10/01/24 14:25 Famotidine 20 Mg/1 Vial Administered 10/01/24 14:26 Dose 20 mg IV .STK-MED ONE Sodium Chloride 1,000 mls @ 999 mls/hr 10/01/24 14:20 10/01/24 14:32 Sodium Chloride 0.9% 1000 Ml IV 10/01/24 15:20 999 mls/hr .Q1H1M STA Administration Sodium Chloride Confirm 10/01/24 14:25 Sodium Chloride 0.9% 1000 Ml Administered 10/01/24 14:26 Dose 1,000 mls @ ud .ROUTE .STK-MED ONE Ondansetron HCl 4 mg 10/01/24 14:20 10/01/24 14:31 Ondansetron Hcl 4 Mg/2 Ml Vial IV 10/01/24 14:21 4 mg STAT ONE Administration Ondansetron HCl Confirm 10/01/24 14:25 Ondansetron Hcl 4 Mg/2 Ml Vial Administered 10/01/24 14:26 Dose 4 mg .ROUTE .K-MED ONE Lab/Rad Data: Laboratory Result Diagrams 10/01/24 14:15 10/01/24 14:15 Laboratory Results 10/01/24 10/01/24 10/01/24 Range/Units 14:15 14:15 14:15 WBC 9.2 (3.98-10.04) x10^3/uL RBC 4.76 (3.93-5.22) x10^6/uL Hgb 14.0 (11.2-15.7) g/dL Hct 43.1 (34.1-44.9) % MCV 90.5 (79.4-94.8) fL MCH 29.4 (25.6-32.2) pg MCHC 32.5 (32.2-35.5) g/dL RDW 13.9 (11.7-14.4) % Plt Count 166 L (182-369) x10^3/uL MPV 10.3 (9.4-12.3) fL Gran % 77.3 H (34.0-71.1) % Immature Gran % (Auto) 0.3 (0.001-0.429) % Nucleat RBC Rel Count 0.0 (0.00-0.2) % Eos # (Auto) 0.05 (0.04-0.36) x10^3/uL Immature Gran # (Auto) 0.03 (0.001-0.031) x10^3u/L Absolute Lymphs (auto) 1.35 (1.18-3.74) x10^3/uL Absolute Monos (auto) 0.64 (0.24-0.86) x10^3/uL Absolute Nucleated RBC 0.00 (0.00-0.012) x10^3u/L Lymphocytes % 14.7 L (19.3-51.7) % Monocytes % 7.0 (4.7-12.5) % Eosinophils % 0.5 L (0.7-5.8) % Basophils % 0.2 (0.1-1.2) % Absolute Granulocytes 7.08 H (1.56-6.13) x10^3/uL Basophils # 0.02 (0.01-0.08) x10^3/uL Sodium 136 (135-145) mmol/L Potassium 3.8 (3.5-5.1) mmol/L Chloride 100 (98-107) mmol/L Carbon Dioxide 29 (22-30) mmol/L Anion Gap 10.2 (5-15) MEQ/L BUN 10 (7-17) mg/dL Creatinine 0.88 (0.52-1.04) mg/dL Estimated GFR 70.7 ML/MIN Glucose 92 (74-106) mg/dL Calcium 9.1 (8.4-10.2) mg/dL Total Bilirubin 1.60 H (0.2-1.3) mg/dL AST 106 H (14-36) U/L ALT 94 H (0-35) U/L Alkaline Phosphatase 99 (38-126) U/L Troponin I < 0.012 (0.000-0.033) ng/mL Serum Total Protein 7.3 (6.3-8.2) g/dL Albumin 4.0 (3.5-5.0) g/dL Amylase 51 (30-110) U/L Lipase 45 (23-300) U/L Urine Color Yellow (Yellow) Urine Appearance Clear (Clear) Urine pH 8.5 A (4.6-8.0) Ur Specific [place] 1.020 (1.005-1.030) Urine Protein Negative (Negative) Urine Glucose (UA) >=1000 A (Negative) mg/dL Urine Ketones Trace A (Negative) Urine Blood Negative (Negative) Urine Nitrite Negative (Negative) Urine Bilirubin Negative (Negative) Urine Urobilinogen 1.0 A (0.2) mg/dL Ur Leukocyte Esterase Negative (Negative) U Hyaline Cast (Auto) NONE SEEN (0-2) /LPF Urine Microscopic RBC 0-2 (0-5) /HPF Urine Microscopic WBC 0-2 (0-5) /HPF Ur Epithelial Cells None Seen (None Seen) /HPF Urine Bacteria None Seen (None Seen) /HPF Urine Culture Reflexed NO (NO) SURGERY DATE/TIME: 08/03/2024 [id number] PREOPERATIVE DIAGNOSES: 1) Epigastric pain. 2) Followup of polyps. POSTOPERATIVE DIAGNOSES: 1) Patient has grade 2/4 gastroesophageal reflux disease. 2) She has a 1-inch hiatal hernia. 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 PROCEDURES: 1) Esophagogastroduodenoscopy. 2) Colonoscopy. a. Complete to cecum. b. Five polyps: Three in the splenic flexure, 1 jar; 1 in the hepatic flexure, 1 jar; 1 in the cecum, 1 jar. All of the polyps were right in the 1 cm range. - Progress Progress: improved Counseled pt/family regarding: lab results, diagnosis, need for follow-up Medical Desision Making - Independent Historian Additional History obtained from: Family - Diagnostic Testing Diagnostic test were ordered, analyzed, and reviewed by me: Yes Radiological Interpretation: Interpreted by me, Reviewed by me - Risk of complications Low Risk: Low risk of morbidity from additional dx testing or treatment - Departure Departure Disposition: Home Clinical Impression: GERD (gastroesophageal reflux disease) Qualifiers: Esophagitis presence: with esophagitis Esophagitis bleeding: without hemorrhage Qualified Code(s): K21.00 - Gastro-esophageal reflux disease with esophagitis, without bleeding Condition: Stable Critical Care Time: No Referrals: NIECY VELEZ DO [Primary Care Provider, [facility]] - Follow up/PCP as directed Instructions: Esophagitis, Acid reflux and GERD in adults Additional Instructions: Discharge/Care Plan RICK STORY was seen on 10/01/24 in the Emergency Room. The patient was counseled regarding Diagnosis,Lab results, Imaging studies, need for follow up and when to return to the Emergency Room. Prescriptions given: Discharge Note I have spoken with the patient and/or caregivers. I have explained the patient's condition, diagnosis and treatment plan based on the information available to me at this time. I have answered the patient's and/or caregiver's questions and addressed any concerns. The patient and/or caregivers have as good understanding of the patient's diagnosis, condition and treatment plan as can be expected at this point. The vital signs have been stable. The patient's condition is stable and appropriate for discharge from the emergency department. The patient will pursue further outpatient evaluation with the primary care physician or other designated or consulting physician as outlined in the discharge instructions. The patient and/or caregivers are agreeable to this plan of care and follow-up instructions have been explained in detail. The patient and/or caregivers have received these instruction. The patient/and or caregivers are aware that any significant change in condition or worsening of symptoms should prompt an immediate return to this or the closest emergency department or call 911. RICK STORY was seen on 10/01/24 n the Emergency Room. At that time you were treated for an emergent condition, during your visit Laboratory, Radiology and/or other procedures may have been ordered. It is very important that you follow-up with your Primary Care Physician NIECY VELEZ DO within the next 24-48 hours to review your Emergency Room visit and the final results of testing that was ordered. Some test results such as Urine Cultures, Blood Cultures, and other cultures if ordered will not be finalized for 24-48 hours. If you do not have a Primary Care Provider please call the medical records department at [phone] ext [phone] to obtain a copy of your results or you may sign into our patient portal to obtain these results by visiting us @ [email or web address] and completing the following steps: 1. Click on the Patient Portal link 2. Click the Patient Self Enrollment Link to complete the enrollment form and entering your 3. Once the enrollment form is completed you will receive an email with a temporary ID and password at the email address you provided. 4. Next choose a user name and password. Your user name must be at least 4 characters long and your password must be at least 4 characters long. 5. Choose a security question from the list and provide your answer to the question. If you already have signed into the Health Portal you may access your Health Care Information 07/12 by the following steps: 1. Login to our website @ [email or web address] 2. Enter your original user name and password. FAQS The [facility] Health Portal is an online tool that contains your Lab Results, Radiology Reports, Visit History, Discharge Instructions and Health Summary Lab and Radiology Results will not be available for 72 hours on the portal. The Portal is a secure site, passwords are encryted and URLs are re-written so they cannot be copied and pasted. You and authorized family members are the only ones who can access your Portal. Also there is a timeout feature that protects your information if you leave the Portal page open. If you have technical difficulty please use the Contact Us link on the page this will allow you to submit any questions you have regarding the Portal or you may contact the Medical Record Department at [phone] ext [phone]. Prescriptions: Famotidine 20 mg [Pepcid 20 MG] 20 mg PO BID #60 tablet
== END 2024-10-01 15:54 | disposition home or self-care (01) ==
LOC: ED 13:55
DX: K21.00 Gastro-esophageal reflux disease with esophagitis, without bleeding (principal); R11.2 Nausea with vomiting, unspecified; I10 Essential (primary) hypertension; E11.42 Type 2 diabetes mellitus with diabetic polyneuropathy; Z79.84 Long term (current) use of oral hypoglycemic drugs; Z79.85 Long-term (current) use of injectable non-insulin antidiabetic drugs; Z79.899 Other long term (current) drug therapy
CPT/HCPCS: 36415; 80053; 81001; 82150; 83690; 84484; 85025; 96374; 96375; 99284; J2405

== ENCOUNTER 2025-04-17 06:51 | Day surgery (SDC) | payer MEDICARE, OTHER ==
[~2025-04-17 06:51] MED LIST changes: +Lactated Ringers 1,000 ML IV ONE
[2025-04-17 07:23] VITALS: RESP 18
[2025-04-17 07:24] LABS: Hematocrit 42.5 % (34.1-44.9); Hemoglobin 13.5 g/dL (11.2-15.7); Mean Corpuscular Hemoglobin 29.2 pg (25.6-32.2); Mean Corpuscular Hgb Concent. 31.8 g/dL (32.2-35.5); Platelet Count 141 x10^3/uL (182-369); Red Blood Count 4.62 x10^6/uL (3.93-5.22); White Blood Count 5.4 x10^3/uL (3.98-10.04)
[2025-04-17 07:34] LABS: Calcium 8.8 mg/dL (8.4-10.2); Carbon Dioxide 29.0 mmol/L (22-30); Creatinine 1 0.95 mg/dL (0.52-1.04); EST GLOMERULAR FILTRATION RATE 64.5 ML/MIN; Glucose 92.0 mg/dL (74-106); Potassium 3.4 mmol/L (3.5-5.1); SGOT/AST 126.0 U/L (14-36); SGPT/ALT 108.0 U/L (0-35); Total Protein 8.0 g/dL (6.3-8.2)
[2025-04-17] MEDS: CLINDAMYCIN-D5W 900 MG/50 ML*** 900 MG/50 ML BAG IV ONE (07:35)
[2025-04-17] MEDS ORDERED: propofoL IV ONE (08:26)
[2025-04-17] MEDS ORDERED: SUBLIMAZE 100 MCG/2 ML ONE (08:26)
[2025-04-17] MEDS ORDERED: Versed 2 MG/2 ML Injection ONE (08:26)
[2025-04-17] MEDS ORDERED: Xylocaine-Mpf 2% 5 Ml Vial ONE (08:26)
[2025-04-17] MEDS ORDERED: Sensorcaine 0.25% 10 ML ONE (08:30)
[2025-04-17] MEDS ORDERED: Xylocaine 1% Vial 30 ML PF IJ ONE (08:31)
[2025-04-17] MEDS ORDERED: Ephedrine Sulfate 50 MG/ML ONE (09:16)
[2025-04-17 10:30] VITALS: BP 109/60; PULSE 66; TEMP 96.9; O2SAT 95
--- NOTE | 2025-04-17 10:30 | XRAY ---
Indication: Follow up surgery. Comparison: October 01, 2023 2 nonweightbearing views right foot demonstrates interval amputation 5th toe with adjacent presumed postoperative soft tissue swelling. Remaining foot unchanged again with osteopenia, partial amputation distal 5th metatarsal, fusion 3rd/4th toes with intact hardware, fusion 2nd PIP, and tiny plantar heel spur.
--- NOTE | 2025-04-19 08:58 | OP ---
SURGERY DATE/TIME: 04/17/2025 [id number] PREOPERATIVE DIAGNOSES: 1) Left 5th digit pain, chronic. 2) Right 5th digit pain, chronic. 3) Flexion contracture of the 5th digit left foot. POSTOPERATIVE DIAGNOSES: 1) Left 5th digit pain, chronic. 2) Right 5th digit pain, chronic. 3) Flexion contracture of the 5th digit left foot. 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 PROCEDURE: SURGEON: Shaheed Miller DPM TITLE CHECKER: None. ANESTHESIA: General plus an intraoperative block. HEMOSTASIS: Pressure dressing. ESTIMATED BLOOD LOSS: Approximately 10 mL. INJECTABLES: 20 mL of 1:1 mixture of 1% lidocaine plain and 0.5% bupivacaine plain injected in a mini [place] block-type fashion to bilateral lower extremities. INDICATIONS: The patient is a very pleasant 69-year-old female very well known to my service for multiple surgical interventions in a previous history. The patient has been having significant amount of pain to the right foot at her 5th digit where there was significant contracture after resection of the 5th metatarsal head due to fat pad atrophy and a significant amount of pain. This pain resolved, however, the 5th toe was experiencing a significant amount of pain due to its rotation seemingly and with ambulation and shoe gear. Despite trying conservative methods, the patient has had little success in alleviating this pain. From that standpoint, the patient wished to proceed with definitive elective amputation of that 5th digit. On the left side, she had concerns of residual contracture of the 5th toe for which it was lifting and rotating into a position that was causing discomfort with shoe gear and ambulation. From that standpoint, the patient wished to proceed with bilateral assessment, removal of the 5th digit as well as soft tissue balancing of the left. From that standpoint, the patient has been made aware of all risks, complications, and benefits of surgical intervention at this time including, but not limited to, infection, hematoma, seroma, possibility of delayed wound healing, non-wound healing, and possible need for further surgical intervention at a later date. No guarantees were provided as to the outcome of surgical intervention. Plenty of time was allowed for the patient to ask questions, which were answered to her apparent satisfaction. It is at this time we decided to proceed. DESCRIPTION OF PROCEDURE AND FINDINGS: The patient was brought into the operating room and placed on the operating room table in the supine position. At this time, general anesthesia was administered until the patient was adequately sedated. Bilateral lower extremities were prepped and draped in the typical sterile fashion and lowered onto the surgical field. At this time, attention was directed to the right 5th digit to the area where the metatarsophalangeal joint would be if the patient did have a 5th metatarsal head. A lateral racquet-type incision was made around the base of the proximal phalanx of the 5th digit and disarticulation took place. It was noted at this time that there was a significant amount of tophaceous gout that was identified within the scar tissue of the proximal phalanx base. Decision was made to remove this and hand this off the field for pathological assessment of the soft tissue. A separate sample was sent. Copious amounts of sterile saline were utilizing to flush the surgical site and 4-0 Monocryl and 3-0 nylon were utilizing in a simple interrupted buried-type fashion to coapt the subcutaneous skin edges as well as 3-0 nylon in an everted-type fashion. Attention was directed to the left foot where extensor tendon lengthening was carried out through a very small incision over the dorsal aspect of the foot, allowing the toe to drop in a more neutral orientation. From that standpoint, a flexor tenotomy was carried out utilizing an 18-gauge needle. The surgical incision at the top was coapted utilizing 3-0 nylon in a simple interrupted-type fashion. Following this, a dressing consisting of Betadine, Adaptic, 4 x 4, Kerlix, ABD, and Agusto was applied to bilateral lower extremities. The patient was then reversed from anesthesia and returned to the postoperative anesthesia care unit with vital signs stable and vascular status intact. The patient handled the anesthesia as well as the procedure without significant complication. Postoperative orders as indicated in the patient's discharge chart.
== END 2025-04-17 11:00 | disposition home or self-care (01) ==
LOC: SDC 06:51
PROVIDERS: ATTEND Podiatrist Foot & Ankle Surgery
DX: M79.675 Pain in left toe(s) (principal); M79.674 Pain in right toe(s); M24.575 Contracture, left foot; M1A.0711 Idiopathic chronic gout, right ankle and foot, with tophus (tophi); E11.9 Type 2 diabetes mellitus without complications